=== PATIENT | female | born 1945 | race Caucasian/White ===

== ENCOUNTER → 2017-01-04 | Outpatient (REF) | payer MEDICARE ==
[2017-01-04 12:14] LABS: ALBUMIN 3.8 GM/DL (3.2-5.2); ALBUMIN/GLOBULIN RATIO 1.31 (1.00-1.93); ALKALINE PHOSPHATASE 103 U/L (45-117); ALT/SGPT 41 U/L (12-78); ANION GAP 7 MEQ/L (8-16); AST/SGOT 30 U/L (15-37); BILIRUBIN,TOTAL 1.2 MG/DL (0.2-1.0); BLOOD UREA NITROGEN 19 MG/DL (7-18); CALCIUM LEVEL 8.3 MG/DL (8.8-10.2); CARBON DIOXIDE LEVEL 32 MEQ/L (21-32); CHLORIDE LEVEL 101 MEQ/L (98-107); CHOLESTEROL LEVEL 242 MG/DL (<200); CREATININE FOR GFR 0.74 MG/DL (0.55-1.02); GLOMERULAR FILTRATION RATE > 60.0 (>39); GLUCOSE, FASTING 127 MG/DL (83-110); POTASSIUM SERUM 4.1 MEQ/L (3.5-5.1); SODIUM LEVEL 140 MEQ/L (136-145); TOTAL PROTEIN 6.7 GM/DL (6.4-8.2); TRIGLYCERIDES LEVEL 191 MG/DL (<150)
== END ==
LOC: M SFHCCLAY 08:20
PROVIDERS: ATTEND Nurse Practitioner
DX: E11.9 Type 2 diabetes mellitus without complications (principal)

== ENCOUNTER → 2017-01-06 | Outpatient (REF) | payer MEDICARE | LOC: M SFHCCLAY 13:23 | PROVIDERS: ATTEND Nurse Practitioner | DX: E11.9 Type 2 diabetes mellitus without complications (principal); Z79.84 Long term (current) use of oral hypoglycemic drugs; E78.5 Hyperlipidemia, unspecified; I10 Essential (primary) hypertension | CPT/HCPCS: 82043; G0463 ==

== ENCOUNTER → 2017-07-08 | Outpatient (REF) | payer MEDICARE ==
[2017-07-08 17:02] LABS: ALBUMIN/GLOBULIN RATIO 1.18 (1.00-1.93); ALKALINE PHOSPHATASE 125 U/L (45-117); ALT/SGPT 36 U/L (12-78); ANION GAP 8 MEQ/L (8-16); AST/SGOT 30 U/L (7-37); BILIRUBIN,TOTAL 1.2 MG/DL (0.2-1.0); BLOOD UREA NITROGEN 15 MG/DL (7-18); CALCIUM LEVEL 8.8 MG/DL (8.8-10.2); CARBON DIOXIDE LEVEL 34 MEQ/L (21-32); CHLORIDE LEVEL 98 MEQ/L (98-107); CHOLESTEROL LEVEL 233 MG/DL (<200); CREATININE FOR GFR 0.71 MG/DL (0.55-1.02); GLOMERULAR FILTRATION RATE > 60.0 (>39); GLUCOSE, FASTING 103 MG/DL (83-110); POTASSIUM SERUM 3.6 MEQ/L (3.5-5.1); SODIUM LEVEL 140 MEQ/L (136-145); TOTAL PROTEIN 7.4 GM/DL (6.4-8.2); TRIGLYCERIDES LEVEL 269 MG/DL (<150)
== END ==
LOC: M SFHCCLAY 13:29
PROVIDERS: ATTEND Family Medicine
DX: E11.9 Type 2 diabetes mellitus without complications (principal); E78.5 Hyperlipidemia, unspecified
CPT/HCPCS: 80053; 80061; 83036; G0463

== ENCOUNTER → 2018-01-13 | Outpatient (REF) | payer MEDICARE ==
[2018-01-13 16:56] LABS: ESTIMATED AVERAGE GLUCOSE 157 MG/DL (60-110); HEMOGLOBIN A1c 7.1 %
[2018-01-13 17:17] LABS: ALBUMIN 4.2 GM/DL (3.2-5.2); ALKALINE PHOSPHATASE 121 U/L (45-117); ALT/SGPT 33 U/L (12-78); ANION GAP 9 MEQ/L (8-16); AST/SGOT 30 U/L (7-37); BILIRUBIN,TOTAL 1.2 MG/DL (0.2-1.0); BLOOD UREA NITROGEN 14 MG/DL (7-18); CALCIUM LEVEL 8.7 MG/DL (8.8-10.2); CARBON DIOXIDE LEVEL 33 MEQ/L (21-32); CHLORIDE LEVEL 98 MEQ/L (98-107); CHOLESTEROL LEVEL 246 MG/DL (<200); GLOMERULAR FILTRATION RATE > 60.0 (>39); GLUCOSE, FASTING 137 MG/DL (70-100); HDL CHOLESTEROL 40 MG/DL (>40); LDL CHOLESTEROL 155.6 MG/DL (<100); NON-HDL-C 206 MG/DL; POTASSIUM SERUM 3.8 MEQ/L (3.5-5.1); SODIUM LEVEL 140 MEQ/L (136-145); TOTAL PROTEIN 7.2 GM/DL (6.4-8.2); TRIGLYCERIDES LEVEL 252 MG/DL (<150)
== END ==
LOC: M SFHCCLAY 13:24
DX: E11.9 Type 2 diabetes mellitus without complications (principal); E78.5 Hyperlipidemia, unspecified
CPT/HCPCS: 80053

== ENCOUNTER → 2019-01-23 | Outpatient (REF) | payer MEDICARE ==
[2019-01-23 12:46] LABS: ALBUMIN 3.6 GM/DL (3.2-5.2); ALT/SGPT 20 U/L (12-78); BILIRUBIN,TOTAL 1.6 MG/DL (0.2-1.0); BLOOD UREA NITROGEN 15 MG/DL (7-18); CALCIUM LEVEL 9.2 MG/DL (8.8-10.2); CARBON DIOXIDE LEVEL 33 MEQ/L (21-32); CHLORIDE LEVEL 98 MEQ/L (98-107); CHOLESTEROL LEVEL 208 MG/DL (<200); CHOLESTEROL RISK RATIO 4.952 (<5); CREATININE FOR GFR 0.79 MG/DL (0.55-1.30); GLOMERULAR FILTRATION RATE > 60.0 (>39); GLUCOSE, FASTING 135 MG/DL (70-100); HDL CHOLESTEROL 42 MG/DL (>40); LDL CHOLESTEROL 127 MG/DL (<100); NON-HDL-C 166 MG/DL; POTASSIUM SERUM 3.8 MEQ/L (3.5-5.1); SODIUM LEVEL 140 MEQ/L (136-145); TOTAL PROTEIN 7.1 GM/DL (6.4-8.2); TRIGLYCERIDES LEVEL 194 MG/DL (<150)
[2019-01-23 13:02] LABS: HEMOGLOBIN A1c 6.8 %
== END ==
LOC: M SFHCCLAY 08:45
PROVIDERS: ATTEND Family Medicine
DX: E78.5 Hyperlipidemia, unspecified (principal); E11.9 Type 2 diabetes mellitus without complications

== ENCOUNTER → 2019-02-20 | Outpatient (REF) | payer MEDICARE ==
[2019-02-20 17:14] LABS: BASO # 0.1 10^3/uL (0.0-0.2); BASO % 0.5 % (0.0-1.0); EOS # 0.3 10^3/uL (0.0-0.50); EOS % 1.9 % (0.0-3.0); HEMATOCRIT 42.9 % (36.0-47.0); LYMPH # 1.7 10^3/uL (1.5-4.5); LYMPH % 11.9 % (24.0-44.0); MEAN CORPUSCULAR HEMOGLOBIN 27.3 pg (27.0-33.0); MEAN CORPUSCULAR HGB CONC 32.6 g/dl (32.0-36.5); MEAN CORPUSCULAR VOLUME 83.8 fl (80.0-96.0); MONO # 1.1 10^3/uL (0.0-0.8); MONO % 7.6 % (0.0-5.0); NEUTROPHILS # 10.8 10^3/uL (1.8-7.7); NEUTROPHILS % 77.6 % (36.0-66.0); PLATELET COUNT, AUTOMATED 360 10^3/uL (150-450); RED BLOOD COUNT 5.12 10^6/uL (4.00-5.40)
== END ==
LOC: M SFHCCLAY 13:55
PROVIDERS: ATTEND Family Medicine
DX: J40 Bronchitis, not specified as acute or chronic (principal); R63.4 Abnormal weight loss; R55 Syncope and collapse; Z85.42 Personal history of malignant neoplasm of other parts of uterus

== ENCOUNTER → 2019-02-22 | Outpatient (CLI) | payer MEDICARE ==
--- NOTE | 2019-02-22 11:42 | REP ---
PA and lateral chest: Comparison is 11/01/2013. There is a 7.0 cm left upper lobe mass as a distinct interval change. The right lung is clear. Cardiac size is normal. The rudy, mediastinum, skeletal structures are unremarkable. Impression: New 7.0 cm left upper lobe mass. Recommend CT for further evaluation. Electronically Signed by Valentín Chaves MD 02/22/2019 11:34 A
== END ==
LOC: M CLY 10:08
PROVIDERS: ATTEND Family Medicine
DX: R91.8 Other nonspecific abnormal finding of lung field (principal)

== ENCOUNTER → 2019-03-02 | Outpatient (CLI) | payer MEDICARE ==
[~2019-03-02] MED LIST: BISO5TAB5 PO; LISI20TA3 PO; LOVA10TA PO
--- NOTE | 2019-03-02 09:24 | REP ---
Clinical: Lung mass. Technique: Axial noncontrast images from the thoracic inlet to the upper abdomen with coronal and sagittal re-formations. Findings: Large left upper lobe lung mass extends from the left suprahilar region into the left upper lobe and measures roughly 8.1 x 7.3 x 6.0 cm maximal diameter reaching the subpleural surface along the lateral chest wall. Multiple smaller satellite lesions are also appreciated ranging in size but measuring up to roughly 3 cm. 1 cm lesion identified within the anterior left lower lobe (image 40) and left base (image 67). Associated left hilar and mediastinal adenopathy is suspected but difficult to evaluate due to the lack of intravenous contrast. No pleural effusion. No pneumothorax. No cardiomegaly noted or pericardial effusion identified. Thoracic aorta is without aneurysm. A solitary pathologic lymph node measuring approximately 17 mm is suggested in the subcutaneous tissues along the right lateral hemithorax (image 62). Upper abdomen demonstrates normal bilateral adrenal glands. Hepatic and splenic calcifications consistent with prior granulomas disease. Osseous structures demonstrate degenerative changes without obvious acute aggressive lesion. Impression: 1. Large pulmonary mass in the left upper lobe extending from the mediastinum/hilum to the subpleural lateral chest wall measuring approximately 8.1 x 7.3 x 6.0 cm maximal diameter. Associated conglomerate mediastinal and left hilar adenopathy suspected. Satellite lesions and smaller with metastatic foci noted. Further evaluation is limited due to the lack of intravenous contrast enhancement. Electronically Signed by Parvez Barnett MD 03/02/2019 09:15 A
== END ==
LOC: M RAD 08:49
PROVIDERS: ATTEND Nurse Practitioner Family
DX: R91.8 Other nonspecific abnormal finding of lung field (principal)

== ENCOUNTER 2019-03-16 08:45 | Day surgery (SDC) | payer MEDICARE ==
[~2019-03-16] VITALS: Ht 152.4 cm; Wt 91.2 kg
[~2019-03-16 08:45] MED LIST changes: +LIDOCAINE 1% MDV 20ML VIAL SQ PRN; +LIDOCAINE 2% INJ 100 MG/5 ML SDV (FOR ANES.) As Ordered ONE; +LISI20TA20 PO; -LISI20TA3 PO; +LR 1,000 ML IV ONE; +MIDAZOLAM INJ 2 MG/2 ML VIAL (J2250) As Ordered ONE; +ONDANSETRON 4MG/2ML VIAL (J2405) As Ordered ONE; +PROPOFOL 200 MG/20 ML VIAL As Ordered ONE; +ROCURONIUM BROMIDE 50 MG/5 ML VIAL As Ordered ONE; +dexameTHASONE 4 MG/ML 1ML VIAL (J1100) As Ordered ONE; +fentaNYL 250 MCG/5 ML INJECTION (J3010) As Ordered ONE
[2019-03-16] MEDS ORDERED: THROMBIN SOLN 5,000 UNITS VIAL As Ordered ONE (09:27)
[2019-03-16] MEDS ORDERED: CETACAINE SPRAY 5GM As Ordered ONE (09:27)
[2019-03-16] MEDS ORDERED: LIDOCAINE VISCOUS 2% SOLN 15ML UDC As Ordered ONE (09:28)
[2019-03-16] MEDS ORDERED: EPINEPHrine INJ 1 MG/ML 1ML AMP As Ordered ONE (09:28)
[2019-03-16] MEDS ORDERED: LIDOCAINE 1% SDV INJ 30 ML VIAL As Ordered ONE (09:28)
[2019-03-16] MEDS ORDERED: EPINEPHrine 1MG/ML INJ 30ML MD-VIAL As Ordered ONE (11:20)
[2019-03-16] MEDS ORDERED: ePHEDrine SULFATE 25 MG/5 ML(5MG/ML) SYRINGE As Ordered ONE (11:28)
[2019-03-16] MEDS ORDERED: SUGAMMADEX SODIUM 500 MG/5 ML VIAL (BRIDION) As Ordered ONE (11:28)
[2019-03-16] MEDS ORDERED: ACETAMINOPHEN 1000MG 100ML IV BTL (OFIRMEV) (J0131 PER 10MG) As Ordered ONE (11:37)
[2019-03-16] MEDS ORDERED: ALBUTEROL 6.7GM INHALER **FOR ANES. CART/OMNICELL ONLY As Ordered ONE (11:52)
[2019-03-16] MEDS ORDERED: NALOXONE INJ 0.4 MG/1 ML VIAL (J2310) As Ordered ONE (11:56)
--- NOTE | 2019-03-16 12:19 | RO ---
DATE OF PROCEDURE: 03/15/2019 PREOPERATIVE DIAGNOSIS: Abnormal chest CT, left upper lobe mass. POSTOPERATIVE DIAGNOSIS: Abnormal chest CT, left upper lobe mass. FINDINGS: Obstructive left upper lobe with tumor and under endobronchial ultrasound large subcarinal node. PROCEDURE: Bronchoscopy with endobronchial ultrasound with fine-needle aspiration procedures. SURGEON: Dr. Ortiz OIL BOILER: None. SPECIMENS OBTAINED: 1. Endobronchial cytology brush left upper lobe. 2. Endobronchial forceps biopsies left upper lobe. 3. FNA subcarinal node under EBUS. ANESTHESIA: General. ESTIMATED BLOOD LOSS: 10 mL. MEDICATION ADMINISTERED DURING BRONCHOSCOPY: Topical to the airway with 1 mL of 1:10,000 epinephrine. DESCRIPTION OF PROCEDURE: After informed consent was reviewed with the patient in the preoperative area, she was brought back to OR number three. General anesthesia was initiated. The patient was intubated with an 8.5 endotracheal tube. The 1T-90 bronchoscope was then introduced with Cetacaine spray for anesthetization. Upon entering the airway, the trachea was midline. The yajaira was sharp. Right and left mainstem bronchi were normal. The RB 1 through 10 was viewed without endobronchial lesion. There was some pitting and banding. In the superior basal segment of the right lower lobe, there was minimal amounts of mucus that had to be cleared with saline. However, after clearance, there was no endobronchial lesion. After inspection of the right airway, the bronchoscope was inserted into the left airway. There was a clear abnormality encroaching on the distal left mainstem. The entire left upper lobe including lingular segment was obstructed with mass-like tissue with hypervascularity. Along the lateral wall of the left mainstem, there was also an abnormal lesion. The left lower lobe, however, was patent without endobronchial lesion. The spur between the left upper and lower lobes was splayed. Cytology brush was then taken of the abnormality on the wall of the distal left mainstem. This was given to cytology and then samples were taken of that area along with the endobronchial lesion in the left upper lobe. There was quite a bit of bleeding. Therefore, epinephrine was used, 1 mL of 1:10,000. After adequate hemostasis, all airways were suctioned and the 1T-190 bronchoscope was removed. Endobronchial ultrasound was inserted. I viewed the subcarinal region from the left side showing an enlarged subcarinal node. Fine needle aspirations were obtained of this lesion. After adequate sampling, the endobronchial ultrasound was removed. The 1T-190 bronchoscope was reinserted. All airways were suctioned and hemostasis was assured. The patient is in recovery and postprocedure chest x-ray is pending.
[2019-03-16] MEDS ORDERED: fentaNYL 100 MCG/2 ML INJECTION (J3010) IV PRN (13:00)
[2019-03-16] MEDS ORDERED: ONDANSETRON 4MG/2ML VIAL (J2405) IV PRN (13:00)
[2019-03-16] MEDS ORDERED: LR 1,000 ML IV SCH (13:00)
[2019-03-16] MEDS ORDERED: PERCOCET 5MG/325MG TAB PO PRN (13:00)
[2019-03-16 13:35] VITALS: BP 150/67
--- NOTE | 2019-03-16 13:48 | REP ---
REASON: Assess for pneumothorax. COMPARISON: 02/22/2019. The technique utilized in obtaining the radiograph has magnified the cardiac silhouette and accentuated the interstitial markings. The left upper lobe opacity is unchanged. There is no evidence of a pneumothorax. Other than technique there is no significant change from the prior exam. IMPRESSION: Persistent left upper lobe opacity. No evidence of a pneumothorax. Electronically Signed by Ramirez Henderson DO 03/16/2019 03:44 P
--- NOTE | 2019-03-18 15:52 | ECGEPIP ---
[facility] Test Date: 2019-03-16 Pat Name: SHANTHI VÁZQUEZ Department: Room: - Gender: Female Plans Examiner: SHARON : 1945 Requested By: TORREY Edmonds Order Number: [id number] Reading MD: John Andrews Measurements Intervals [place] Rate: 84 P: 65 NC: 139 QRS: 44 QRSD: 89 T: 35 QT: 390 QTc: 463 Interpretive Statements SINUS RHYTHM NO PRIOR TRACING IN THE SYSTEM Electronically Signed on 03-18-2019 15:51:37 EDT by John Andrews
== END 2019-03-16 13:50 | disposition home or self-care (01) ==
LOC: M SDC 08:45
PROVIDERS: ATTEND Internal Medicine Pulmonary Disease
DX: C34.12 Malignant neoplasm of upper lobe, left bronchus or lung (principal); R94.2 Abnormal results of pulmonary function studies; I10 Essential (primary) hypertension; E78.00 Pure hypercholesterolemia, unspecified; Z85.41 Personal history of malignant neoplasm of cervix uteri; Z79.899 Other long term (current) drug therapy
CPT/HCPCS: 31623; 31625; 31652; 71045; 88104; 88173; 88305; 88313; 88341; 88342; 93005; J0131; J1100; J2250; J2310; J2405; J3010

== ENCOUNTER → 2019-04-12 | Outpatient (CLI) | payer MEDICARE ==
[~2019-04-12] MED LIST changes: -BISO5TAB5 PO; +BISO5TAB9 PO; +DECA4TAB PO; +LIDO2.5C15 TOP; -LIDOCAINE 1% MDV 20ML VIAL SQ PRN; -LIDOCAINE 2% INJ 100 MG/5 ML SDV (FOR ANES.) As Ordered ONE; -LR 1,000 ML IV ONE; -MIDAZOLAM INJ 2 MG/2 ML VIAL (J2250) As Ordered ONE; +ONDA4TAB5 PO; -ONDANSETRON 4MG/2ML VIAL (J2405) As Ordered ONE; -PROPOFOL 200 MG/20 ML VIAL As Ordered ONE; -ROCURONIUM BROMIDE 50 MG/5 ML VIAL As Ordered ONE; +VITA250T18 PO; -dexameTHASONE 4 MG/ML 1ML VIAL (J1100) As Ordered ONE; -fentaNYL 250 MCG/5 ML INJECTION (J3010) As Ordered ONE
--- NOTE | 2019-04-12 14:39 | REP ---
PET/CT: HISTORY: Diagnosing malignant lesion left upper lobe of the lung. Biopsy shows a poorly differentiated non-small cell carcinoma. COMPARISONS: Comparison chest CT March 02, 2019. TECHNIQUE: 56 minutes following the intravenous injection of a 9.31 mCi dose of F-18 FDG, three-dimensional PET scintigraphy is acquired from the skull base to the proximal thighs. Triplanar noncontrast CT scanning is acquired through the same anatomic range for attenuation correction, and image registration with scan parameters optimized to minimize radiation exposure to the patient. PET scintigraphy and CT datasets were fused and displayed on a workstation with multiplanar and projection display capability. PET/CT FINDINGS: Head and neck soft tissues are unremarkable. There is a large hypermetabolic mass in the left upper lobe extending into the left hilus and mediastinum as seen on CT. Maximum standard uptake value within this large lobulated mass lesion is up to 24.0. There is a curvilinear extension of the mass lesion posterolaterally in the left upper lobe which is hypermetabolic as well, 12.53. Left superior mediastinal adenopathy is seen extending up to and adjacent to the great vessels, maximum standard uptake value 15.37. No other abnormal hypermetabolic uptake is seen within the chest. No abnormal adrenal uptake is seen. There are unfortunately skeletal metastatic sites with a hypermetabolic focus of bone destruction in the humeral head on the right side at the glenohumeral articulation. Maximum standard uptake value here is 17.37. The second skeletal metastatic site is in the medullary canal in the proximal diaphysis of the left femur where there is endosteal cortical thinning. Maximum standard uptake value is 14.89. This bony lesion is elongate measuring 9.2 cm in craniocaudal span in the endosteal canal of the proximal femur. There is a tiny focus of hypermetabolic uptake in the left pubic bone consistent with a metastasis. Maximum standard uptake value 4.73. A small hypermetabolic skeletal metastasis is seen in the right superior iliac bone with maximum standard uptake value 4.82. No other definite skeletal metastatic sites. There is a hypermetabolic somewhat spiculated 1.6 cm nodule in the subcutaneous fat of the right lateral chest wall versus inferior breast. Maximum standard uptake value is 13.91. This is consistent with a soft tissue metastasis. IMPRESSION: Bulky left upper lobe, left hilar, and left mediastinal hypermetabolic adenopathy. There are multiple skeletal metastases and a subcutaneous soft tissue metastasis is noted as above. Please note the skeletal sites include a fairly large endosteal lesion in the subtrochanteric femur on the left side which raises a risk for pathologic fracture. Electronically Signed by Helder Lin MD 04/12/2019 03:28 P
== END ==
LOC: M PLARAD 08:37
PROVIDERS: ATTEND Internal Medicine Pulmonary Disease
DX: R91.8 Other nonspecific abnormal finding of lung field (principal)
CPT/HCPCS: 78815; A9552

== ENCOUNTER → 2019-04-17 | Outpatient (CLI) | payer MEDICARE ==
[~2019-04-17] MED LIST changes: +BISO5TAB14 PO; -BISO5TAB9 PO; +LIDOCAINE 1% MDV 20ML VIAL As Ordered ONE; +MIDAZOLAM INJ 2 MG/2 ML VIAL (J2250) As Ordered ONE; +ONDA-83 PO; -ONDA4TAB5 PO; +ceFAZolin 1GM INJ (J0690 PER 500MG) As Ordered ONE; +diphenhydrAMINE INJ 50MG/ML VIAL (J1200) As Ordered ONE; +fentaNYL 100 MCG/2 ML INJECTION (J3010) As Ordered ONE
--- NOTE | 2019-04-17 13:21 | IRHP ---
[facility] IR Pre-Procedure H & P General Date of Service: Apr 17, 2019 Procedure: Same Day Surgery Interval History and Physical I have seen the patient and reviewed last H & P performed within 30 days. There is no significant interval change. History of Present Illness Chief Complaint The patient is a 74-year-old female admitted with a reason for visit of NSCLC. PRE-PROCEDURE DIAGNOSIS: lung ca HEART: normal rate. LUNGS: normal breathing at rest. ASA Classification ASA Classification: II-Mild systemic disease Mallampati Score: II NPO: Yes Problems with prior sedation: No Obstructive Sleep Apnea: No Plan moderate sedation Allergies Coded Allergies: No Known Allergies (Unverified , 03/10/19) Home Medications Scheduled Ascorbic Acid (Vitamin C), 250 MG PO DAILY, (Reported) Bisoprolol Fumarate (Bisoprolol Fumarate), 2.5 MG PO DAILY, (Reported) Dexamethasone (Decadron), 2 TAB PO BID Lidocaine/Prilocaine (Lidocaine-Prilocaine Cream), 1 APLCT TOP ASDIRECTED Lisinopril/Hydrochlorothiazide (Lisinopril-Hctz 20-25 mg Tab), 1 TAB PO DAILY, (Reported) Lovastatin (Lovastatin), 10 MG PO DAILY, (Reported) Scheduled PRN Ondansetron HCl (Ondansetron HCl), 4 MG PO Q4HP PRN for nausea/vomiting VS, I&O, 24H, Fishbone Vital Signs/I&O Vital Signs Date Time Temp Pulse Resp B/P (MAP) Pulse Ox O2 Delivery O2 Flow Rate FiO2 04/17/19 13:04 96.7 80 20 96 RUTH CHOWDHURY MD Apr 17, 2019 13:21
--- NOTE | 2019-04-17 14:38 | POST-OPPD ---
Postoperative Procedure Note Date Of Procedure: Apr 17, 2019 Time Of Procedure: 14:37 PREOPERATIVE DIAGNOSIS: lung ca POSTOPERATIVE DIAGNOSIS:lung ca FINDINGS: patent right IJ PROCEDURE: right side port SURGEON: peter ANESTHESIA: moderate sedation ESTIMATED BLOOD LOSS: < 5 ml COMPLICATIONS: none POSTOPERATIVE CONDITION: stable RUTH CHOWDHURY MD Apr 17, 2019 14:38
[2019-04-17 15:31] VITALS: BP 115/66
--- NOTE | 2019-04-17 16:21 | REP ---
IR Ultrasound and fluoroscopy-guided port placement. IR Ultrasound of the neck. IR Moderate sedation. Clinical information: Lung cancer. Physician: Dr. Moore. Procedure: The patient was advised of the benefits, risks, and alternatives of the procedure and informed consent was obtained. A time-out was performed with verification of the patient's name, MRN, site of procedure and type of procedure to be performed. The patient was positioned in the supine position on the angiographic table. The site was prepped and draped in the usual sterile fashion. Moderate sedation was performed by the physician including the presence of an independent trained observer who assisted and monitored the patient's level of consciousness and physiologic status. Following the administration of Fentanyl and Versed, the physician spent 45 minutes of continuous face to face time with the patient. Ultrasound of the neck reveals a patent and compressible right internal jugular vein. A crusher supervisor radiograph reveals left lung consolidation. The neck and anterior chest wall were anesthetized with lidocaine. The right internal jugular vein was accessed using a microintroducer needle by a lateral approach. An 018 wire was advanced into the superior vena cava, the needle was removed and a microsheath was placed. An Amplatz wire was then passed into the inferior vena cava. An incision at the internal jugular vein access site and anterior chest wall were made using a scalpel. An incision was made at the anterior chest wall. A small pocket was created using a combination of blunt and sharp dissection. A tunneling device was then used to pass the catheter from the pocket to the neck puncture site. An 8-Dominican AngiodynamUbitexx smart power port was then positioned in the pocket. The catheter was then measured and cut. The introducer sheath was exchanged for a peel-away sheath. The catheter was passed through the peel-away sheath into the internal jugular vein and the peel-away sheath was removed. The port tip was positioned at the right atrium. The port was then accessed with a Arshad needle. The port flushes and aspirates well. The puncture site in the neck was closed. The chest wall incision was then closed with 2-0 Vicryl and 4-0 Monocryl. Glue and Steri-Strips were applied. A sterile dressing was then applied. The patient tolerated the procedure well and was returned to the PRU in stable condition. Estimated blood loss: <5 ml. Complications: none. Conclusion: 1. Successful placement of an 8-Dominican Angiodynamics smart power port via the right internal jugular vein. The port is ready for immediate use. 2. Patient to follow up in IR clinic in 2 weeks. Thank you for this referral. Electronically Signed by Danyelle Moore MD 04/17/2019 04:19 P
== END ==
LOC: M IRPRO 12:42
PROVIDERS: ATTEND Radiology Diagnostic Radiology
DX: C34.90 Malignant neoplasm of unspecified part of unspecified bronchus or lung (principal); Z79.899 Other long term (current) drug therapy
CPT/HCPCS: 36561; 76937; 99152; 99153; C1769; C1788; C1894; J0690; J1200; J2250; J3010

== ENCOUNTER → 2019-04-25 | Outpatient (CLI) | payer MEDICARE ==
[~2019-04-25] MED LIST changes: -BISO5TAB14 PO; +BISO5TAB9 PO; -LIDOCAINE 1% MDV 20ML VIAL As Ordered ONE; -MIDAZOLAM INJ 2 MG/2 ML VIAL (J2250) As Ordered ONE; -ONDA-83 PO; +ONDA4TAB5 PO; -ceFAZolin 1GM INJ (J0690 PER 500MG) As Ordered ONE; -diphenhydrAMINE INJ 50MG/ML VIAL (J1200) As Ordered ONE; -fentaNYL 100 MCG/2 ML INJECTION (J3010) As Ordered ONE
--- NOTE | 2019-04-26 08:59 | RADONC ---
RADIATION ONCOLOGY CONSULTATION NOTE DATE: 04/25/2019 CHART NUMBER: [id number] DIAGNOSIS: Left upper lobe lung cancer. STAGE: IV, metastatic. ECOG PERFORMANCE STATUS: 0 CONSULTATION NOTE: Ms. Wood is a very pleasant, 74-year-old white female with the diagnosis of widely metastatic poorly differentiated non-small cell carcinoma involving her left upper lobe as well as mediastinum and bone metastasis who is presenting to us today for consideration of palliative radiation therapy to her left femur. HISTORY OF PRESENT ILLNESS: The patient was in her usual state of health with a long smoking history. She also had increasing shortness of breath. A CT scan of the chest was undertaken on 03/02/2019 and revealed a large left upper lobe pulmonary mass extending from the mediastinum and hilar area to the subpleural lateral chest wall measuring approximately 8.1 cm x 7.3 cm x 6 cm. Associated conglomerate mediastinal and left hilar adenopathy was suspected. There were noted to be satellite lesions and small metastatic foci. On 03/21/2019, the patient underwent transbronchial biopsy and pathology revealed a poorly differentiated non-small cell carcinoma. A PET scan was done on 04/12/2019 and showed hypermetabolic bulky uptake in the left upper lobe as well as left hilar and left mediastinal regions. There were multiple skeletal metastatic sites and a subcutaneous soft tissue mass was also noted. Of note, there was a large endosteal lesion in the sub trochanter femur on the left side, which raises the possibility of a risk for pathologic fracture. She was seen by medical oncology on 04/06/2019 to discuss systemic options and is now being referred to me for consideration of palliative radiation therapy to her left femur due to it being a weightbearing bone. ALLERGIES: The patient has NO KNOWN DRUG ALLERGIES. PAST MEDICAL HISTORY: The patient's past medical history is positive for hypertension, hypercholesterolemia, cervical cancer, status post hysterectomy and resection of a benign right breast nodule. SOCIAL HISTORY: The patient has a long smoking history having smoked her entire life. She drinks alcohol socially. REVIEW OF SYSTEMS: The patient's review of systems is noncontributory other than for some shortness of breath. She is not having any pain at this time. Denies nausea, vomiting, fevers, chills, night sweats, diplopia, headaches, anxiety or depression, anorexia, weight loss, visual disturbances, chest pain, urinary or bowel difficulties, bone pain, or neurological problems. PHYSICAL EXAMINATION: The patient is a well-developed, well-nourished, 74-year-old white female, in no acute distress. HEENT exam is normocephalic, atraumatic. Extraocular movements are intact. There is no palpable cervical, supraclavicular, infraclavicular, axillary, or inguinal lymphadenopathy present. Lungs are clear to auscultation and percussion. Heart has a regular rate and rhythm. Abdomen is benign with no hepatosplenomegaly, masses, or tenderness. Skeletal examination reveals no tenderness to pressure or percussion of the bony skeleton. Extremities reveal no clubbing, cyanosis, or edema. Neurologic exam is grossly intact, as is the remainder of the physical examination. ASSESSMENT: I had a lengthy discussion with this patient and her family. I am quite concerned at this time with the lesion in her left femur. I have personally reviewed the PET scan with our radiologist Dr. Lin, who does agree that this is a weightbearing bone that if untreated could potentially lead to a pathologic fracture. Of course, systemic therapy will also be treating this bone. However, in light of the fact that the patient is somewhat overweight, I think it reasonable to offer her radiation at this time to avoid pain and pathological fracture. The patient is scheduled to be seen at the [facility] in [place] on Wednesday for a second opinion and most likely treatment with systemic therapy. The patient's family are quite supportive and wish for her to be seen down there. Apparently other family members were treated at that center with good results. The patient and family are more than happy to undergo there radiation here in our center and I think that is reasonable considering the great distance to [place]. I have discussed in detail the potential benefits as well as possible acute and chronic sequelae of external beam radiation therapy. We discussed logistics of treatment planning, simulation subsequent fractionated daily radiation treatments. I did discuss the patient's risk for pathologic fracture in detail. I asked her to avoid weightbearing on that left leg. I have given her instructions for walking and going upstairs. I let her know to be diligent. We are attempting to undertake simulation and treatment planning tomorrow and begin radiation on this week. This way if she were to get her systemic therapy in [place] we can be completed by the time she starts treatment. I did discuss radiation to other sites. However, systemic therapy will also be treating the humerus and other sites. Since there is much less of a risk of pathologic fracture and these are note weightbearing bones, I believe it reasonable to withhold radiation to these sites at this time. Should they progress or become painful, we can always initiate radiation at that time. Thank you for allowing us to participate in the care of this very pleasant woman. If I could be of any further assistance or provide you with any information, please free to contact me anytime. As always, warm regards. cc: DO Bruna Champion MD Rory Sears, DO [facility]
== END ==
LOC: M ONCR 09:52
PROVIDERS: ATTEND Radiology Radiation Oncology
DX: C34.90 Malignant neoplasm of unspecified part of unspecified bronchus or lung (principal)

== ENCOUNTER 2019-04-27 13:38 | Outpatient (RCR) | payer MEDICARE ==
--- NOTE | 2019-04-28 10:03 | RADONC ---
RADIATION ONCOLOGY SIMULATION NOTE DATE: 04/27/2019 CHART NUMBER: [id number] SIMULATION NOTE: Ms. Wood was taken to the CT scan for CT simulation of her left femur field. CT was accomplished without difficulty or discomfort. Radiation treatment planning is underway and radiation treatments will begin subsequently. An immobilization device was made and will be used throughout the course of treatment. It was made without difficulty or discomfort. I was physically present throughout the course of CT simulation.
== END 2019-05-01 ==
LOC: M ONCR 13:38
PROVIDERS: ATTEND Radiology Radiation Oncology
DX: C79.51 Secondary malignant neoplasm of bone (principal)

== ENCOUNTER → 2019-05-08 | Outpatient (CLI) | payer MEDICARE ==
[~2019-05-08] MED LIST changes: +ISOVUE-370 76% 100ML VIAL (Q9967) As Ordered ONE
--- NOTE | 2019-05-08 13:27 | REP ---
CT brain without and with IV contrast: History: Malignant neoplasm of the lung, rule out metastasis. No comparison brain imaging is seen. Comparison PET/CT study April 12, 2019. CT contrast dose: 75 mL of intravenous Isovue 370. CT findings: Digital preliminary room service waiter radiograph is unremarkable. Bone window settings demonstrate a dystrophic calcification in the right frontal scalp. No bony destructive lesion is seen in the calvarium. The visualized paranasal sinuses are clear. On soft tissue window settings, there is a rounded low density mass lesion in the periventricular white matter of the left frontal lobe. This measures 2.3 cm in greatest diameter. There is some adjacent vasogenic edema. No other intracranial mass lesion is seen. No hemorrhage is seen. On contrast enhanced images, there is some peripheral contrast enhancement seen in the left frontal lobe lesion. No other abnormal intracranial enhancement is appreciated. Impression: Solitary 2.3 cm peripherally enhancing mass in the periventricular white matter of the left frontal lobe with some surrounding vasogenic edema compatible with an intracranial metastasis. Electronically Signed by Helder Lin MD 05/08/2019 03:16 P
== END ==
LOC: M RAD 09:14
DX: C34.90 Malignant neoplasm of unspecified part of unspecified bronchus or lung (principal)
CPT/HCPCS: 70470; Q9967

== ENCOUNTER → 2019-05-09 | Outpatient (POV) | payer MEDICARE ==
[~2019-05-09] VITALS: Ht 152.4 cm; Wt 88.6 kg
[~2019-05-09] MED LIST changes: -ISOVUE-370 76% 100ML VIAL (Q9967) As Ordered ONE
[2019-05-09 10:50] VITALS: BP 120/64
--- NOTE | 2019-05-09 15:49 | IRPN ---
[facility] IR Progress Note IR Progress Note DATE: May 09, 2019 FOLLOW-UP: 2 weeks status post port placement. Patient doing well. No fevers or chills. No pain or discharge from site.. ON EXAMINATION: Port site looks good. No discharge. No redness, tenderness or fluctuance. IMPRESSION: Doing well status post port placement. No further follow-up required unless initiated by patient or referring physician. Thank you for this referral. Allergies Coded Allergies: No Known Allergies (Unverified , 03/10/19) VS,Fishbone, I+O VS, Fishbone, I+O Vital Signs Date Time Temp Pulse Resp B/P (MAP) Pulse Ox O2 Delivery O2 Flow Rate FiO2 05/09/19 10:50 97.9 79 18 120/64 (82) 95 RUTH CHOWDHURY MD May 09, 2019 15:49
== END ==
LOC: M IRPOV 09:30
PROVIDERS: ATTEND Radiology Diagnostic Radiology
DX: Z45.2 Encounter for adjustment and management of vascular access device (principal)

== ENCOUNTER 2019-05-16 08:27 | Outpatient (RCR) | payer MEDICARE ==
--- NOTE | 2019-05-08 10:56 | RADONC ---
RADIATION ONCOLOGY PROGRESS NOTE DATE: 05/08/2019 CHART NUMBER: [id number] PROGRESS NOTE: Ms. Wood is presently at a dose of 1500 cGy to her left femur and is tolerating treatments quite well at this point with no complaints related to her radiation therapy. She is having no bone pain or skin discomfort. REVIEW OF SYSTEMS: The patient's review of systems is noncontributory. Denies nausea, vomiting, fevers, chills, night sweats, diplopia, headaches, anxiety or depression, anorexia, weight loss, visual disturbances, chest pain, urinary or bowel difficulties, bone pain, or neurological problems. PHYSICAL EXAMINATION: The patient's skin is in good condition with no evidence of radiation change present. There is no moist or dry desquamation. The remainder of her physical exam remains unchanged. ASSESSMENT: The patient is tolerating treatments quite well and radiation will continue as scheduled. I did receive a call from [place] to discuss this case. In light of the fact that we are not involving her critical organs, I think it is safe to initiate chemotherapy while radiation is being delivered. Indeed the overlap would only be a day or so.
--- NOTE | 2019-05-15 10:01 | RADONC ---
RADIATION ONCOLOGY PROGRESS NOTE DATE: 05/15/2019 CHART NUMBER: [id number] PROGRESS NOTE: Ms. Wood is presently at a dose of 2700 cGy to her left femur and is tolerating treatments quite well at this point with no complaints related to her radiation therapy. She has no leg pain or other problems. REVIEW OF SYSTEMS: The patient's review of systems is noncontributory. Denies nausea, vomiting, fevers, chills, night sweats, diplopia, headaches, anxiety or depression, anorexia, weight loss, visual disturbances, chest pain, urinary or bowel difficulties, bone pain, or neurological problems. PHYSICAL EXAMINATION: The patient's skin is in good condition with no evidence of moist or dry desquamation. The remainder of her physical exam remains unchanged. Ms. Wood is tolerating treatments quite well and radiation is scheduled for completion tomorrow.
--- NOTE | 2019-05-17 09:34 | RADONC ---
RADIATION ONCOLOGY TREATMENT SUMMARY DATE: 05/16/2019 CHART NUMBER: [id number] DIAGNOSIS: Left upper lobe lung cancer. STAGE: IV, metastatic. ECOG PERFORMANCE STATUS: 0. TREATMENT SUMMARY: Ms. Wood is a very pleasant 74-year-old white female with the diagnosis of widely metastatic poorly differentiated non-small cell carcinoma involving her left upper lobe as well as mediastinum with bone metastasis who presented to us for consideration of palliative radiation therapy to her left femur. We treated the patient to her left femur for a total dose of 3000 cGy delivered in 10 fractions of 300 cGy each over 14 elapsed days from 05/02/2019 through 05/16/2019. The patient's left femur was treated on a linear accelerator utilizing a 15 MV photon beam via anterior and posterior parallel opposed thompson. Ms. Wood tolerated her treatments quite well and was able complete therapy as prescribed without interruption. I have scheduled the patient to see me again in 1 month for further followup. She will also continue to be followed by her other physicians as well. She is scheduled to begin her systemic therapy at the [facility] in [place]. I had once again a very lengthy discussion with this patient and her family regarding the risk for a pathologic fracture. She has been advised strongly to be careful with any weightbearing. I made it clear to her that she should not be lifting any packages, shoveling snow, bowling, or putting any weight on that bone more than necessary. She has been advised to use a walker. cc: DO Bruna Champion MD Rory Sears, DO [facility]
== END 2019-06-01 ==
LOC: M ONCR 08:27
PROVIDERS: ATTEND Radiology Radiation Oncology
DX: C79.51 Secondary malignant neoplasm of bone (principal)

== ENCOUNTER → 2019-05-22 | Outpatient (CLI) | payer MEDICARE ==
[~2019-05-22] MED LIST changes: +PROHANCE 279.3MG/ML 15ML VIAL (A9576) As Ordered ONE
--- NOTE | 2019-05-22 15:18 | REP ---
MRI brain: 05/22/2019. Indication: Lung neoplasm. Metastatic workup. Comparison: None. Technique: Multiplanar short and long TR sequences of the brain were obtained including post-gadolinium images new. 5 ml IV ProHance were administered. Findings: There is a somewhat nodular peripherally enhancing predominantly cystic mass within the left frontal lobe measuring 1.8 x 2.1 x 1.9 cm. There is relatively mild surrounding vasogenic edema. There is mild mass effect on the left frontal horn without shift of the midline structures. There is a small focal area of restricted diffusion along the anterior margin of the cystic mass. There is no hydrocephalus. The large intracranial flow voids are present. There is a subcentimeter cystic lesion within the sella which may represent an arachnoid cyst. There is no associated gadolinium enhancement. The midline structures, and craniocervical junction are otherwise unremarkable. Mild diffuse volume loss is present. Very minimal elevated areas of white matter T2 prolongation are present bilaterally most consistent with early sequelae of chronic small vessel disease. Impression: Peripherally enhancing predominately cystic left frontal lobe mass as described. Considering history, metastasis is most likely, however, additional less likely considerations include abscess and primary glial neoplasm. Electronically Signed by Mina Robles DO 05/22/2019 03:09 P
== END ==
LOC: M RAD 13:31
PROVIDERS: ATTEND Physician Assistant Medical
DX: C79.31 Secondary malignant neoplasm of brain (principal); G93.6 Cerebral edema
CPT/HCPCS: 70553; A9576

== ENCOUNTER 2019-06-09 09:55 | Outpatient (CLI) | payer MEDICARE ==
[~2019-06-09] VITALS: Ht 152.4 cm; Wt 88.6 kg
[~2019-06-09 09:55] MED LIST changes: -PROHANCE 279.3MG/ML 15ML VIAL (A9576) As Ordered ONE; +SODIUM CHLORIDE 0.9% INJ 10 ML SYR IV SCH
[2019-06-09 10:05] VITALS: BP 99/55
[2019-06-09 10:45] LABS: BASO % 0.1 % (0.0-1.0); EOS % 0.2 % (0.0-3.0); HEMOGLOBIN 14.1 g/dl (12.0-15.5); LYMPH # 0.8 10^3/uL (1.5-5.0); LYMPH % 4.4 % (24.0-44.0); MEAN CORPUSCULAR HEMOGLOBIN 28.3 pg (27.0-33.0); MEAN CORPUSCULAR HGB CONC 33.6 g/dl (32.0-36.5); MEAN CORPUSCULAR VOLUME 84.2 fl (80.0-96.0); MONO # 1.2 10^3/uL (0.0-0.8); MONO % 6.5 % (0.0-5.0); NEUTROPHILS # 16.4 10^3/uL (1.5-8.5); NEUTROPHILS % 87.9 % (36.0-66.0); PLATELET COUNT, AUTOMATED 257 10^3/uL (150-450); RED BLOOD COUNT 4.99 10^6/uL (4.00-5.40); WHITE BLOOD COUNT 18.6 10^3/uL (4.0-10.0)
[2019-06-09] MEDS ORDERED: SODIUM CHLORIDE 0.9% INJ 10 ML SYR IV PRN (10:45)
[2019-06-09 11:00] VITALS: BP 90/51
[2019-06-09 11:15] LABS: ALBUMIN 3.1 GM/DL (3.2-5.2); ALT/SGPT 28 U/L (12-78); BILIRUBIN,TOTAL 2.2 MG/DL (0.2-1.0); BLOOD UREA NITROGEN 34 MG/DL (7-18); CALCIUM LEVEL 8.1 MG/DL (8.8-10.2); CARBON DIOXIDE LEVEL 29 MEQ/L (21-32); CHLORIDE LEVEL 96 MEQ/L (98-107); CREATININE FOR GFR 0.75 MG/DL (0.55-1.30); GLOMERULAR FILTRATION RATE > 60.0 (>39); GLUCOSE, FASTING 76 MG/DL (70-100); POTASSIUM SERUM 3.8 MEQ/L (3.5-5.1); SODIUM LEVEL 134 MEQ/L (136-145); TOTAL PROTEIN 5.5 GM/DL (6.4-8.2)
[2019-06-09 11:50] LABS: CA 125 111.9 U/ML (<30.2)
== END 2019-06-09 11:00 | disposition home or self-care (01) ==
LOC: M INFU 09:55
PROVIDERS: ATTEND Internal Medicine Hematology & Oncology
DX: C55 Malignant neoplasm of uterus, part unspecified (principal)

== ENCOUNTER → 2019-06-30 | Outpatient (CLI) | payer MEDICARE ==
[~2019-06-30] MED LIST changes: -SODIUM CHLORIDE 0.9% INJ 10 ML SYR IV SCH
== END ==
LOC: M LAB 08:15
PROVIDERS: ATTEND Internal Medicine Hematology & Oncology
DX: C55 Malignant neoplasm of uterus, part unspecified (principal); Z79.899 Other long term (current) drug therapy

== ENCOUNTER → 2019-07-24 | Outpatient (CLI) | payer MEDICARE ==
[2019-07-24 09:05] LABS: BASO % 0.4 % (0.0-1.0); EOS % 0.1 % (0.0-3.0); HEMATOCRIT 29.6 % (36.0-47.0); LYMPH % 12.7 % (24.0-44.0); MEAN CORPUSCULAR HGB CONC 30.4 g/dl (32.0-36.5); MEAN CORPUSCULAR VOLUME 95.5 fl (80.0-96.0); MONO # 0.6 10^3/uL (0.0-0.8); MONO % 7.2 % (0.0-5.0); NEUTROPHILS # 6.2 10^3/uL (1.5-8.5); NEUTROPHILS % 77.8 % (36.0-66.0); PLATELET COUNT, AUTOMATED 158 10^3/uL (150-450)
[2019-07-24 09:32] LABS: ALBUMIN 2.9 GM/DL (3.2-5.2); ALT/SGPT 13 U/L (12-78); BILIRUBIN,TOTAL 1.7 MG/DL (0.2-1.0); BLOOD UREA NITROGEN 8 MG/DL (7-18); CALCIUM LEVEL 7.6 MG/DL (8.8-10.2); CARBON DIOXIDE LEVEL 31 MEQ/L (21-32); CHLORIDE LEVEL 103 MEQ/L (98-107); CREATININE FOR GFR 0.76 MG/DL (0.55-1.30); GLOMERULAR FILTRATION RATE > 60.0 (>39); GLUCOSE, FASTING 121 MG/DL (70-100); MAGNESIUM LEVEL 1.4 MG/DL (1.8-2.4); POTASSIUM SERUM 4.4 MEQ/L (3.5-5.1); SODIUM LEVEL 141 MEQ/L (136-145); TOTAL PROTEIN 5.8 GM/DL (6.4-8.2)
[2019-07-25 09:54] LABS: CA 125 47.2 U/ML (<30.2)
== END ==
LOC: M LAB 08:10
PROVIDERS: ATTEND Internal Medicine Hematology & Oncology
DX: C55 Malignant neoplasm of uterus, part unspecified (principal); Z79.899 Other long term (current) drug therapy

== ENCOUNTER → 2019-07-24 | Outpatient (CLI) | payer MEDICARE | LOC: M LAB 08:06 | PROVIDERS: ATTEND Family Medicine | DX: E11.9 Type 2 diabetes mellitus without complications (principal) ==

== ENCOUNTER → 2019-08-14 | Outpatient (CLI) | payer MEDICARE ==
[~2019-08-14] MED LIST changes: +BISO5TAB14 PO; -BISO5TAB9 PO; +ONDA-83 PO; -ONDA4TAB5 PO
[2019-08-14 09:22] LABS: BASO % 0.3 % (0.0-1.0); EOS % 0.3 % (0.0-3.0); HEMATOCRIT 27.5 % (36.0-47.0); HEMOGLOBIN 8.5 g/dl (12.0-15.5); LYMPH # 0.7 10^3/uL (1.5-5.0); LYMPH % 12.7 % (24.0-44.0); MEAN CORPUSCULAR HEMOGLOBIN 30.9 pg (27.0-33.0); MEAN CORPUSCULAR HGB CONC 30.9 g/dl (32.0-36.5); MONO # 0.5 10^3/uL (0.0-0.8); MONO % 7.8 % (0.0-5.0); NEUTROPHILS # 4.4 10^3/uL (1.5-8.5); NEUTROPHILS % 76.8 % (36.0-66.0); PLATELET COUNT, AUTOMATED 127 10^3/uL (150-450); RED BLOOD COUNT 2.75 10^6/uL (4.00-5.40); WHITE BLOOD COUNT 5.8 10^3/uL (4.0-10.0)
[2019-08-14 12:59] LABS: ALBUMIN 3.3 GM/DL (3.2-5.2); ALT/SGPT 12 U/L (12-78); BILIRUBIN,TOTAL 1.1 MG/DL (0.2-1.0); BLOOD UREA NITROGEN 11 MG/DL (7-18); CALCIUM LEVEL 6.3 MG/DL (8.8-10.2); CARBON DIOXIDE LEVEL 28 MEQ/L (21-32); CHLORIDE LEVEL 103 MEQ/L (98-107); GLOMERULAR FILTRATION RATE > 60.0 (>39); GLUCOSE, FASTING 108 MG/DL (70-100); MAGNESIUM LEVEL 0.9 MG/DL (1.8-2.4); POTASSIUM SERUM 2.9 MEQ/L (3.5-5.1); SODIUM LEVEL 141 MEQ/L (136-145); TOTAL PROTEIN 5.9 GM/DL (6.4-8.2)
[2019-08-15 10:26] LABS: CA 125 23.9 U/ML (<30.2)
== END ==
LOC: M LAB 08:35
PROVIDERS: ATTEND Internal Medicine Hematology & Oncology
DX: C55 Malignant neoplasm of uterus, part unspecified (principal)

== ENCOUNTER → 2019-09-04 | Outpatient (CLI) | payer MEDICARE ==
[2019-09-04 09:16] LABS: BASO % 0.4 % (0.0-1.0); EOS % 0.6 % (0.0-3.0); HEMATOCRIT 28.2 % (36.0-47.0); HEMOGLOBIN 8.7 g/dl (12.0-15.5); LYMPH # 0.7 10^3/uL (1.5-5.0); LYMPH % 13.8 % (24.0-44.0); MEAN CORPUSCULAR HEMOGLOBIN 31.6 pg (27.0-33.0); MEAN CORPUSCULAR HGB CONC 30.9 g/dl (32.0-36.5); MEAN CORPUSCULAR VOLUME 102.5 fl (80.0-96.0); MONO # 0.6 10^3/uL (0.0-0.8); MONO % 11.2 % (0.0-5.0); NEUTROPHILS # 3.7 10^3/uL (1.5-8.5); NEUTROPHILS % 72.2 % (36.0-66.0); PLATELET COUNT, AUTOMATED 106 10^3/uL (150-450); RED BLOOD COUNT 2.75 10^6/uL (4.00-5.40); WHITE BLOOD COUNT 5.1 10^3/uL (4.0-10.0)
[2019-09-04 09:19] LABS: ALBUMIN 3.4 GM/DL (3.2-5.2); ALT/SGPT 16 U/L (12-78); BILIRUBIN,TOTAL 1.2 MG/DL (0.2-1.0); BLOOD UREA NITROGEN 10 MG/DL (7-18); CALCIUM LEVEL 6.9 MG/DL (8.8-10.2); CARBON DIOXIDE LEVEL 32 MEQ/L (21-32); CHLORIDE LEVEL 104 MEQ/L (98-107); CREATININE FOR GFR 0.62 MG/DL (0.55-1.30); GLOMERULAR FILTRATION RATE > 60.0 (>39); GLUCOSE, FASTING 108 MG/DL (70-100); MAGNESIUM LEVEL 1.1 MG/DL (1.8-2.4); POTASSIUM SERUM 3.1 MEQ/L (3.5-5.1); SODIUM LEVEL 144 MEQ/L (136-145); TOTAL PROTEIN 6.2 GM/DL (6.4-8.2)
[2019-09-04 11:28] LABS: CA 125 16.9 U/ML (<30.2)
== END ==
LOC: M LAB 08:16
PROVIDERS: ATTEND Internal Medicine Hematology & Oncology
DX: C54.9 Malignant neoplasm of corpus uteri, unspecified (principal)

== ENCOUNTER → 2019-09-26 | Outpatient (CLI) | payer MEDICARE ==
[2019-09-26 10:04] LABS: BASO % 0.5 % (0.0-1.0); EOS % 0.2 % (0.0-3.0); HEMATOCRIT 27.8 % (36.0-47.0); HEMOGLOBIN 8.9 g/dl (12.0-15.5); LYMPH # 0.7 10^3/uL (1.5-5.0); LYMPH % 17.4 % (24.0-44.0); MEAN CORPUSCULAR HEMOGLOBIN 31.8 pg (27.0-33.0); MEAN CORPUSCULAR VOLUME 99.3 fl (80.0-96.0); MONO # 0.5 10^3/uL (0.0-0.8); MONO % 12.7 % (0.0-5.0); NEUTROPHILS # 2.8 10^3/uL (1.5-8.5); NEUTROPHILS % 67.7 % (36.0-66.0); WHITE BLOOD COUNT 4.1 10^3/uL (4.0-10.0)
[2019-09-26 10:09] LABS: PLATELET COUNT, AUTOMATED 85 10^3/uL (150-450)
[2019-09-26 10:43] LABS: ALT/SGPT 11 U/L (12-78); BLOOD UREA NITROGEN 8 MG/DL (7-18); CALCIUM LEVEL 7.8 MG/DL (8.8-10.2); CARBON DIOXIDE LEVEL 30 MEQ/L (21-32); CHLORIDE LEVEL 103 MEQ/L (98-107); GLOMERULAR FILTRATION RATE > 60.0 (>39); GLUCOSE, FASTING 106 MG/DL (70-100); POTASSIUM SERUM 3.4 MEQ/L (3.5-5.1); SODIUM LEVEL 140 MEQ/L (136-145)
[2019-09-26 10:44] LABS: ALBUMIN 3.3 GM/DL (3.2-5.2); BILIRUBIN,TOTAL 0.9 MG/DL (0.2-1.0); MAGNESIUM LEVEL 1.2 MG/DL (1.8-2.4)
[2019-09-26 11:12] LABS: CA 125 18.9 U/ML (<30.2)
== END ==
LOC: M LAB 08:36
PROVIDERS: ATTEND Internal Medicine Hematology & Oncology
DX: C54.9 Malignant neoplasm of corpus uteri, unspecified (principal)

== ENCOUNTER → 2019-10-03 | Outpatient (CLI) | payer MEDICARE ==
[2019-10-03 09:16] LABS: BASO % 0.3 % (0.0-1.0); EOS % 0.5 % (0.0-3.0); HEMATOCRIT 29.8 % (36.0-47.0); HEMOGLOBIN 9.5 g/dl (12.0-15.5); LYMPH # 0.6 10^3/uL (1.5-5.0); MEAN CORPUSCULAR HEMOGLOBIN 31.9 pg (27.0-33.0); MEAN CORPUSCULAR HGB CONC 31.9 g/dl (32.0-36.5); MONO # 0.5 10^3/uL (0.0-0.8); MONO % 11.8 % (0.0-5.0); NEUTROPHILS # 2.9 10^3/uL (1.5-8.5); NEUTROPHILS % 71.6 % (36.0-66.0); PLATELET COUNT, AUTOMATED 170 10^3/uL (150-450); RED BLOOD COUNT 2.98 10^6/uL (4.00-5.40)
[2019-10-03 09:47] LABS: ALBUMIN 3.3 GM/DL (3.2-5.2); ALT/SGPT 12 U/L (12-78); BLOOD UREA NITROGEN 7 MG/DL (7-18); CALCIUM LEVEL 8.1 MG/DL (8.8-10.2); CARBON DIOXIDE LEVEL 31 MEQ/L (21-32); CHLORIDE LEVEL 103 MEQ/L (98-107); CREATININE FOR GFR 0.62 MG/DL (0.55-1.30); GLOMERULAR FILTRATION RATE > 60.0 (>39); GLUCOSE, FASTING 111 MG/DL (70-100); MAGNESIUM LEVEL 1.3 MG/DL (1.8-2.4); POTASSIUM SERUM 3.3 MEQ/L (3.5-5.1); SODIUM LEVEL 141 MEQ/L (136-145)
[2019-10-03 12:06] LABS: CA 125 19.7 U/ML (<30.2)
== END ==
LOC: M LAB 08:38
PROVIDERS: ATTEND Internal Medicine Hematology & Oncology
DX: C54.9 Malignant neoplasm of corpus uteri, unspecified (principal)

== ENCOUNTER 2020-01-16 20:56 | Emergency (ER) | payer MEDICARE ==
[~2020-01-16] VITALS: Ht 154.9 cm; Wt 82.3 kg
[2020-01-16 21:54] LABS: BASO % 0.3 % (0.0-1.0); EOS % 0.3 % (0.0-3.0); HEMATOCRIT 34.5 % (36.0-47.0); HEMOGLOBIN 11.2 g/dl (12.0-15.5); LYMPH # 0.7 10^3/uL (1.5-5.0); MEAN CORPUSCULAR HEMOGLOBIN 28.2 pg (27.0-33.0); MEAN CORPUSCULAR HGB CONC 32.5 g/dl (32.0-36.5); MEAN CORPUSCULAR VOLUME 86.9 fl (80.0-96.0); MONO # 0.7 10^3/uL (0.0-0.8); MONO % 5.9 % (0.0-5.0); NEUTROPHILS # 10.1 10^3/uL (1.5-8.5); PLATELET COUNT, AUTOMATED 246 10^3/uL (150-450); RED BLOOD COUNT 3.97 10^6/uL (4.00-5.40); WHITE BLOOD COUNT 11.6 10^3/uL (4.0-10.0)
--- NOTE | 2020-01-16 22:02 | REPVR ---
PROCEDURE INFORMATION: Exam: CT Head Without Contrast Exam date and time: 01/16/2020 9:39 PM Age: 74 years old Clinical indication: Pain; Headache; Additional info: CVA. History of a left upper lobe poorly differentiated aal-jvnja-tyzm lung carcinoma. TECHNIQUE: Imaging protocol: Computed tomography of the head without contrast. Radiation optimization: All CT scans at this facility use at least one of these dose optimization techniques: automated exposure control; mA and/or kV adjustment per patient size (includes targeted exams where dose is matched to clinical indication); or iterative reconstruction. Other technique: STROKE PROTOCOL was implemented. COMPARISON: 1. CT Head W/O FOLL BY WITH CONTR 05/08/2019 9:37 AM 2. MRI-Brain W/O FOLL BY WITH 05/22/2019 2:05:24 PM FINDINGS: Brain: There is a cystic lesion in the left frontal lobe that has decreased in size from 2.1 cm to 1.5 cm since the prior CT on 05/08/2019. However, the extent of vasogenic edema around the mass and local mass effect has increased in the left frontal lobe since the prior CT on 05/08/2019 and there is sulcal effacement in the left frontal lobe and mass effect on the frontal horn of the left lateral ventricle. There is a left to right midline shift of 4 mm. No uncal or tonsillar herniation is noted. No acute intracranial hemorrhage is seen. Ventricles: Normal size for age. No hydrocephalus. Bones/joints: The skull is intact. No suspicious osteolytic or osteoblastic lesion. The nasal septum is deviated to the right of midline. Sinuses: The imaged portions of the sinuses are well-aerated. No air-fluid levels are noted in the sinuses. Mastoid air cells: Clear. Orbits: Incidental note is made of a right lens implant. The globes and orbits are intact. Soft tissues: There is soft tissue swelling in the right side of the forehead. There is a 7 mm oval-shaped calcification in the scalp in the right forehead, which is unchanged compared to the prior CT on 05/08/2019. There is a small protuberance of the skin in the right supraorbital region, which is similar in appearance compared to the prior CT on 05/08/2019. IMPRESSION: 1. Interval decrease in the size of the cystic lesion in the left frontal lobe from 2.1 cm to 1.5 cm since the prior [address] head on 05/08/2019, but the vasogenic edema surrounding the mass has progressed and there is local mass effect, sulcal effacement, and a left to right midline shift of 4 mm. 2. Soft tissue swelling in the right side of the forehead. ASSESSMENT: ASPECTS ([place] Stroke Program Early CT Score) is 10. Electronically signed by: Esteban May On 01/16/2020 22:02:18 PM
[2020-01-16 22:13] LABS: INR 1.15; PROTHROMBIN TIME 14.4 SECONDS (11.8-14.0)
[2020-01-16 22:14] LABS: PARTIAL THROMBOPLASTIN TIME 28.6 SECONDS (25.0-38.4)
[2020-01-16 22:16] LABS: BLOOD UREA NITROGEN 13 MG/DL (7-18); CALCIUM LEVEL 8.8 MG/DL (8.8-10.2); CARBON DIOXIDE LEVEL 28 MEQ/L (21-32); CHLORIDE LEVEL 102 MEQ/L (98-107); CK-MB VALUE MASS < 1.0 NG/ML (<3.6); CPK CREATINE PHOSPHOKINASE 96 U/L (26-192); CREATININE FOR GFR 0.85 MG/DL (0.55-1.30); GLOMERULAR FILTRATION RATE > 60.0 (>39); GLUCOSE, FASTING 153 MG/DL (70-100); MB/CK RELATIVE INDEX 1.04 (< OR =4); POTASSIUM SERUM 3.2 MEQ/L (3.5-5.1); SODIUM LEVEL 137 MEQ/L (136-145); TROPONIN I 0.02 NG/ML (< 0.10)
--- NOTE | 2020-01-16 22:16 | REPVR ---
PROCEDURE INFORMATION: Exam: CT Cervical Spine Without Contrast Exam date and time: 01/16/2020 9:39 PM Age: 74 years old Clinical indication: Injury or trauma; Fall; Initial encounter; Blunt trauma; Additional info: CVA. History of a poorly differentiated non-small cell carcinoma in the left upper lobe. TECHNIQUE: Imaging protocol: Computed tomography images of the cervical spine without contrast. Radiation optimization: All CT scans at this facility use at least one of these dose optimization techniques: automated exposure control; mA and/or kV adjustment per patient size (includes targeted exams where dose is matched to clinical indication); or iterative reconstruction. COMPARISON: PT PET/CT Skull/mid thigh 04/12/2019 10:18 AM FINDINGS: Vertebrae: There is straightening of the normal cervical lordosis. There is no fracture or subluxation. The vertebral body heights are preserved. There is no cervical rib. No suspicious osteolytic or osteoblastic lesion is noted. Discs/Spinal canal/Neural foramina: There are severe degenerative changes of the atlantoaxial joint. There is loss of disc height at the C6-C7 level. There are endplate spurs and osteoarthritis of the facet joints at several levels in the cervical spine. There is mild left neural foraminal stenosis at the C4-C5 level and mild right neural foraminal stenosis at the C5-C6 level. No spinal canal stenosis is noted. Prevertebral Space: No prevertebral soft tissue swelling is noted. Soft tissues: Unremarkable. No soft tissue fluid collection is noted. Thyroid: There is a 7 mm cystic nodule in the right lobe of the thyroid gland and a 4 mm calcification in the left lobe of the thyroid gland, for which follow-up is not necessary. Lymph nodes: No cervical lymphadenopathy is noted. Limited lungs: There are 8 mm, 8 mm, and 11 mm irregular masses in the left lung apex in the location of a previously noted larger left upper lobe mass extending into the left hilum and mediastinum in the PET-CT on 04/12/2019. There is also a 4 mm solid pulmonary nodule in the right lung apex, which is stable compared to the prior PET/CT on 04/12/2019. The lungs were not fully imaged. IMPRESSION: 1. Straightening of the normal cervical lordosis, but no fracture or subluxation in the cervical spine. 2. C4-C5: Mild left neural foraminal stenosis. 3. C5-C6: Mild right neural foraminal stenosis. 4. 8 mm, 8 mm, and 11 mm irregular masses in the left lung apex in the location of a previously noted larger left upper lobe mass extending into the left hilum and mediastinum in the PET-CT on 04/12/2019. [facility] follow up recommendations for incidental nodules are not indicated. Follow up per patient's medical condition. 5. 4 mm solid pulmonary nodule in the right lung apex, which is stable compared to the prior PET/CT on 04/12/2019. COMMENTS: Consistent with the [employer]'s Incidental Findings Committee white paper (J Am Blanca Radiol 2015): In patients aged 35 years and older with an incidental thyroid nodule equal to or greater than 1.[address], MRI or extrathyroidal US, further evaluation with dedicated thyroid US is recommended for patients with normal life expectancy and without comorbidities. For smaller nodules without suspicious features, no further evaluation or follow up is recommended. THIS REPORT CONTAINS FINDINGS THAT MAY BE CRITICAL TO PATIENT CARE. The exam findings were verbally communicated by me to LEVI Lee via telephone conference at 10:10 PM EDT on 01/16/2020. The findings were acknowledged and understood. Electronically signed by: Esteban May On 01/16/2020 22:16:26 PM
[2020-01-16] MEDS ORDERED: dexameTHASONE 20MG/5ML VIAL (J1100 PER 1MG) IV ONE (23:00)
[2020-01-17 01:15] VITALS: BP 168/79
--- NOTE | 2020-01-17 08:19 | ECGEPIP ---
[facility] - ED Test Date: 2020-01-16 Pat Name: SHANTHI VÁZQUEZ Department: Room: - Gender: Female [employer]: ghanshyam : 1945 Requested By: LEVI Burris Order Number: [id number] Reading MD: Demian Thomas Measurements Intervals Stuart Rate: 109 P: 62 KS: 134 QRS: 59 QRSD: 76 T: 56 QT: 331 QTc: 447 Interpretive Statements SINUS TACHYCARDIA WITH OCCASIONAL SUPRAVENTRICULAR PREMATURE COMPLEXES MODERATE ST DEPRESSION SIMILAR TO 03/16/19 Electronically Signed on 01-17-2020 8:19:21 EDT by Demian Thomas
--- NOTE | 2020-01-17 08:23 | REP ---
PORTABLE CHEST X-RAY: Single view. HISTORY: CVA. COMPARISON CHEST X-RAY: March 16, 2019. FINDINGS: A right-sided Gvyxgk-J-Slbe catheter is noted in place with its tip in the expected location of the right atrial junction with the SVC. There is linear fibrosis versus plate-like atelectasis in the left perihilar region in the area where the prior study showed an infiltrate. The lung thompson are otherwise clear. Heart is not enlarged. IMPRESSION: Linear fibrosis versus plate-like atelectasis on the left. Otherwise no acute disease. Right-sided Etxxme-W-Brra. Electronically Signed by Helder Lin MD 01/17/2020 05:09 P
== END 2020-01-17 01:29 | disposition short-term general hospital (02) ==
LOC: M ED 20:56 → EDSEX 20:56 → EDBD 20:56 → M ED 01-17 01:29
DX: C54.1 Malignant neoplasm of endometrium (principal); C79.31 Secondary malignant neoplasm of brain; G93.6 Cerebral edema; E07.9 Disorder of thyroid, unspecified; R93.89 Abnormal findings on diagnostic imaging of other specified body structures; M48.02 Spinal stenosis, cervical region; R91.8 Other nonspecific abnormal finding of lung field; R00.0 Tachycardia, unspecified; E11.9 Type 2 diabetes mellitus without complications; E78.5 Hyperlipidemia, unspecified; I10 Essential (primary) hypertension; Z79.52 Long term (current) use of systemic steroids; Z79.899 Other long term (current) drug therapy; Z95.828 Presence of other vascular implants and grafts
CPT/HCPCS: 70450; 71045; 72125; 80048; 82550; 82553; 84484; 85025; 85610; 85730; 86850; 86900; 86901; 93005; 93041; 94760; 96374; 99285; J1100

== ENCOUNTER → 2020-01-16 | Outpatient (CLI) | payer MEDICARE ==
[2020-01-16 11:50] LABS: ALBUMIN 3.5 GM/DL (3.2-5.2); ALT/SGPT 11 U/L (12-78); BILIRUBIN,TOTAL 1.2 MG/DL (0.2-1.0); BLOOD UREA NITROGEN 14 MG/DL (7-18); CALCIUM LEVEL 9.1 MG/DL (8.8-10.2); CARBON DIOXIDE LEVEL 31 MEQ/L (21-32); CHLORIDE LEVEL 101 MEQ/L (98-107); CREATININE FOR GFR 0.71 MG/DL (0.55-1.30); GLOMERULAR FILTRATION RATE > 60.0 (>39); GLUCOSE, FASTING 111 MG/DL (70-100); POTASSIUM SERUM 3.4 MEQ/L (3.5-5.1); SODIUM LEVEL 138 MEQ/L (136-145); TOTAL PROTEIN 6.9 GM/DL (6.4-8.2)
== END ==
LOC: M LAB 10:26
PROVIDERS: ATTEND Internal Medicine Hematology & Oncology
DX: C55 Malignant neoplasm of uterus, part unspecified (principal)

== ENCOUNTER → 2020-02-08 | Outpatient (REF) | payer MEDICARE ==
[~2020-02-08] MED LIST changes: +ELIQ5TAB PO; +LEVE10003 PO; +MEGE40TA PO
[2020-02-08 17:27] LABS: ALBUMIN 3.2 GM/DL (3.2-5.2); ALT/SGPT 23 U/L (12-78); BILIRUBIN,TOTAL 1.9 MG/DL (0.2-1.0); BLOOD UREA NITROGEN 23 MG/DL (7-18); CALCIUM LEVEL 8.3 MG/DL (8.8-10.2); CARBON DIOXIDE LEVEL 30 MEQ/L (21-32); CHLORIDE LEVEL 101 MEQ/L (98-107); CHOLESTEROL LEVEL 189 MG/DL (<200); CHOLESTEROL RISK RATIO 3.098 (<5); GLOMERULAR FILTRATION RATE > 60.0 (>39); GLUCOSE, FASTING 102 MG/DL (70-100); HDL CHOLESTEROL 61 MG/DL (>40); LDL CHOLESTEROL 106 MG/DL (<100); NON-HDL-C 128 MG/DL; POTASSIUM SERUM 4.4 MEQ/L (3.5-5.1); SODIUM LEVEL 136 MEQ/L (136-145); TRIGLYCERIDES LEVEL 110 MG/DL (<150)
[2020-02-08 17:58] LABS: HEMOGLOBIN A1c 6.1 %
== END ==
LOC: M SFHCCLAY 10:17
PROVIDERS: ATTEND Family Medicine
DX: E11.9 Type 2 diabetes mellitus without complications (principal); E78.5 Hyperlipidemia, unspecified

== ENCOUNTER → 2020-02-28 | Outpatient (REF) | payer MEDICARE ==
[2020-03-26 12:46] LABS: APPEARANCE, URINE CLOUDY (CLEAR); BACTERIA, URINE AUTO NEGATIVE (NEGATIVE); BILIRUBIN, URINE AUTO NEGATIVE (NEGATIVE); BLOOD, URINE BLOOD NEGATIVE (NEGATIVE); COLOR, URINE AMBER (YELLOW); GLUCOSE, URINE (UA) AUTO NEGATIVE (NEGATIVE); KETONE, URINE AUTO NEGATIVE (NEGATIVE); LEUKOCYTE ESTERASE, URINE AUTO 2+ (NEGATIVE); MUCUS, URINE SMALL (NEGATIVE); NITRITE, URINE AUTO NEGATIVE (NEGATIVE); PROTEIN, URINE AUTO NEGATIVE (NEGATIVE); RBC, URINE AUTO 5 /HPF (0-3); SQUAMOUS EPITHELIAL CELL UR AU 8 /HPF (0-6); WBC, URINE AUTO 125 /HPF (0-3)
== END ==
LOC: M SHH 12:40
PROVIDERS: ATTEND Nurse Practitioner Family
DX: R39.81 Functional urinary incontinence (principal)

== ENCOUNTER 2020-04-12 10:01 | Emergency (ER) | payer MEDICARE ==
[~2020-04-12] VITALS: Ht 152.4 cm; Wt 79.1 kg
[~2020-04-12 10:01] MED LIST changes: -ELIQ5TAB PO; -LEVE10003 PO; -MEGE40TA PO
[2020-04-12] MEDS ORDERED: LEVE10003 PO (10:21)
[2020-04-12] MEDS ORDERED: ELIQ5TAB PO (10:21)
[2020-04-12] MEDS ORDERED: MEGE40TA PO (10:22)
--- NOTE | 2020-04-12 10:46 | REPVR ---
PROCEDURE INFORMATION: Exam: CT Head Without Contrast Exam date and time: 04/12/2020 10:27 AM Age: 75 years old Clinical indication: Injury or trauma; Fall; Initial encounter; Blunt trauma (contusions or hematomas); Consciousness not specified; Additional info: Fall on thinners TECHNIQUE: Imaging protocol: Computed tomography of the head without contrast. Radiation optimization: All CT scans at this facility use at least one of these dose optimization techniques: automated exposure control; mA and/or kV adjustment per patient size (includes targeted exams where dose is matched to clinical indication); or iterative reconstruction. COMPARISON: CT Head without contrast 01/16/2020 9:35 PM FINDINGS: Brain: There is stable vasogenic edema/post treatment change within the left frontal lobe. Subtle underlying known cystic lesion is less well visualized. There is decreased mass effect the left frontal horn. There is no hemorrhage. Mild diffuse volume loss is within the range of normal for patient age. There are small vessel ischemic changes within the periventricular and subcortical white matter. Ventricles: No ventriculomegaly. There is decreased mass effect upon the left frontal horn. Bones/joints: Unremarkable. No acute fracture. Sinuses: Visualized sinuses are unremarkable. No fluid levels. Mastoid air cells: Visualized mastoid air cells are well aerated. Soft tissues: Unremarkable. IMPRESSION: 1. No acute hemorrhage or calvarial fracture. 2. Stable vasogenic edema/post treatment change within the left frontal lobe. Ill-defined cystic lesion within the left frontal lobe, less well seen. Decreased mass effect upon the left frontal horn. Electronically signed by: Melody Bahena On 04/12/2020 10:46:20 AM
--- NOTE | 2020-04-12 10:51 | REPVR ---
PROCEDURE INFORMATION: Exam: CT Cervical Spine Without Contrast Exam date and time: 04/12/2020 10:27 AM Age: 75 years old Clinical indication: Injury or trauma; Fall; Initial encounter; Blunt trauma; Additional info: Fall on thinners TECHNIQUE: Imaging protocol: Computed tomography images of the cervical spine without contrast. Radiation optimization: All CT scans at this facility use at least one of these dose optimization techniques: automated exposure control; mA and/or kV adjustment per patient size (includes targeted exams where dose is matched to clinical indication); or iterative reconstruction. COMPARISON: CT Spine,cervical w/o contrast 01/16/2020 9:35 PM FINDINGS: Vertebrae: No acute fracture. Normal alignment. Discs/Spinal canal/Neural foramina: There is focal narrowing along the anterior C1/C2 articulation. There is moderate to severe intervertebral disc space loss C6/7. There is multilevel facet hypertrophy. There is fusion of the left C3 and C4 posterior elements. Soft tissues: Unremarkable. Lungs: Lung apices are normal. IMPRESSION: No acute fracture. Electronically signed by: Melody Bahena On 04/12/2020 10:51:13 AM
[2020-04-12 10:57] VITALS: BP 173/80
--- NOTE | 2020-04-12 14:28 | ED PDOC ---
Post-Departure Follow-Up dr granados faxed formal report of ct head and c spine for Eryn Sarah MD Apr 12, 2020 14:28
== END 2020-04-12 10:59 | disposition home or self-care (01) ==
LOC: M ED 10:01
DX: S00.03XA Contusion of scalp, initial encounter (principal); W01.198A Fall on same level from slipping, tripping and stumbling with subsequent striking against other object, initial encounter; Y92.019 Unspecified place in single-family (private) house as the place of occurrence of the external cause; G93.6 Cerebral edema; E11.9 Type 2 diabetes mellitus without complications; I10 Essential (primary) hypertension; E78.5 Hyperlipidemia, unspecified; Z79.01 Long term (current) use of anticoagulants; Z79.899 Other long term (current) drug therapy

== ENCOUNTER → 2020-06-05 | Outpatient (REF) | payer MEDICARE ==
[~2020-06-05] MED LIST changes: +ELIQ5TAB PO; +LEVE10003 PO; +MEGE40TA PO
[2020-06-05 17:42] LABS: BASO # 0.1 10^3/uL (0.0-0.2); BASO % 0.5 % (0.0-1.0); HEMATOCRIT 39.8 % (36.0-47.0); LYMPH # 1.1 10^3/uL (1.5-5.0); LYMPH % 8.8 % (24.0-44.0); MEAN CORPUSCULAR HEMOGLOBIN 30.9 pg (27.0-33.0); MEAN CORPUSCULAR HGB CONC 32.7 g/dl (32.0-36.5); MEAN CORPUSCULAR VOLUME 94.5 fl (80.0-96.0); MONO # 0.7 10^3/uL (0.0-0.8); NEUTROPHILS % 81.4 % (36.0-66.0); PLATELET COUNT, AUTOMATED 208 10^3/uL (150-450); RED BLOOD COUNT 4.21 10^6/uL (4.00-5.40); WHITE BLOOD COUNT 12.2 10^3/uL (4.0-10.0)
[2020-06-05 20:07] LABS: BLOOD UREA NITROGEN 28 MG/DL (7-18); CALCIUM LEVEL 8.4 MG/DL (8.8-10.2); CARBON DIOXIDE LEVEL 31 MEQ/L (21-32); CHLORIDE LEVEL 96 MEQ/L (98-107); CREATININE FOR GFR 0.73 MG/DL (0.55-1.30); GLOMERULAR FILTRATION RATE > 60.0 (>39); GLUCOSE, FASTING 145 MG/DL (70-100); POTASSIUM SERUM 3.1 MEQ/L (3.5-5.1); SODIUM LEVEL 138 MEQ/L (136-145)
[2020-06-05 21:20] LABS: HEMOGLOBIN A1c 5.4 %
== END ==
LOC: M SHH 16:45
PROVIDERS: ATTEND Family Medicine
DX: R60.9 Edema, unspecified (principal); E11.9 Type 2 diabetes mellitus without complications

== ENCOUNTER → 2020-07-05 | Outpatient (CLI) | payer MEDICARE ==
[~2020-07-05] MED LIST changes: +ISOVUE-370 76% 100ML VIAL As Ordered ONE
--- NOTE | 2020-07-05 18:16 | REP ---
INDICATION: NEOPLASM OF UNSPEC BEHAVIOR W/ UTERINE CA. COMPARISON: Comparison chest CT study March 02, 2019. Comparison PET-CT April 12, 2019.. TECHNIQUE: Helical scanning is acquired. 3 mm axial images re-formatted. Coronal and sagittal MPR images are generated. The contrast enhancement dose is 100 mL of intravenous Isovue 370. FINDINGS: A right-sided Ducmdr-Z-Ufqo catheter is noted. There has been significant improvement in the bulky left upper lobe mass lesion in the interval since the March and April CT and PET-CT imaging studies. Residual pleural based nodule is seen in the left upper lobe measuring 2.7 cm in greatest diameter, previously 7.8 cm. There is AP window region mediastinal adenopathy although this is much improved as well. This measures 1.5 x 3.5 cm. No hilar adenopathy is appreciated today. There are some subcentimeter nodular changes in the left lung apex with some atelectasis associated. These were not apparent previously. There is a small thin walled cavity anterior to the larger lung nodule in the left upper lobe which is also new finding. There is mild diffuse mural thickening in the esophageal wall without mass lesion. A small hiatal hernia is noted. There is no CT evidence of pulmonary embolus. No aortic dissection or aneurysm is apparent. No pleural or pericardial effusion is seen. No supraclavicular or axillary mass is seen. Previously noted right inferior breast/chest wall nodule is no longer seen. On bone window settings, there is sclerotic change in the subcortical humeral head on the right where prior study showed radiolucency. This may reflect healing metastatic disease. There is subtle flattening of the articular margin of the humeral head here. Nose no new skeletal metastatic site is appreciated. IMPRESSION: Significant improvement consistent with partial response to treatment. Some residual AP window region mediastinal adenopathy and nodular disease in the left upper lobe seen. Improvement noted in right humeral head metastasis. The right lateral chest wall subcutaneous nodule is no longer apparent. <Electronically signed by Jaylon Lin > 07/05/20 [id number]
--- NOTE | 2020-07-05 18:25 | REP ---
INDICATION: NEOPLASM OF UNSPEC BEHAVIOR W/ UTERINE CA. COMPARISON: Comparison PET-CT study 04/12/2019.. TECHNIQUE: Helical scanning is acquired and 3 mm axial images re-formatted. Coronal and sagittal MPR images are generated. The CT contrast enhancement dose is 100 mL of intravenous Isovue 370. FINDINGS: A small sliding-type hiatal hernia is noted. Granulomatous calcifications are noted in the spleen. No significant splenic lesion is seen. There is a hypervascular nodule in the periphery of the left lobe of the liver high near the dome of the diaphragm. This measures 18 mm in greatest diameter. It shows washout on the delayed postcontrast sequence similar to blood pool. these were not visualized on prior CT studies although they were accomplished without contrast. These are nonspecific. There is mild diffuse fatty infiltration of the liver. There are 1 or 2 granulomatous calcifications in the liver as well. No adrenal lesion is seen. No abnormality is noted in the pancreas. There is a small calcification at the fundus the gallbladder consistent with a small is gallstone. There is an irregularly shaped intrarenal calculus in the lower pole collecting system of the right kidney measuring 9 mm. No hydronephrosis is seen. No other renal lesion is seen. No retroperitoneal mass or adenopathy is observed. Uterus is surgically absent. Urinary bladder is unremarkable. There is mild left colonic diverticulosis without CT evidence of diverticulitis. No abdominal or peritoneal mass lesion is observed. On bone window settings, there is a 1.1 cm radiolucency in the inferior pubic ramus near the symphysis on the left. Some activity was seen here on previous PET-CT. There is a large sclerotic metastatic focus in the right iliac crest measuring 4 cm in greatest diameter. No mass effect is seen. This is larger than the previously noted radiolucent lesion on the April 12, 2019 but is now sclerotic. No other focal skeletal metastatic site is seen. IMPRESSION: 1. Intrarenal nephrolithiasis. Old granulomatous disease. 2. There are 2 hypervascular liver nodules which could be hypervascular metastases versus is a benign lesion such as adenoma or focal nodular hyperplasia. There is some fatty infiltration of the liver and show old granulomatous calcifications are noted in the liver and spleen. 3. There is a 4 cm sclerotic area in the right iliac crest consistent with treated metastatic disease. A 1.1 cm radiolucent lesion is seen in the left inferior pubic ramus. Otherwise negative. <Electronically signed by Jaylon Lin > 07/05/20 [id number]
--- NOTE | 2020-07-05 18:30 | REP ---
INDICATION: NEOPLASM OF UNSPEC BEHAVIOR W/ UTERINE CA. COMPARISON: Comparison PET-CT imaging April 12, 2019. Comparison is made with a CT images obtained for radiation therapy on April 27, 2019 as well.. TECHNIQUE: Helical scanning is acquired and 3 mm axial images re-formatted. 100 mL of intravenous Isovue 370 is administered. Coronal and sagittal MPR images are generated. FINDINGS: Again noted is an endosteal lesion with increased attenuation of the marrow space in the proximal diaphysis of the left femur. There is some thinning of the endosteal surface of the cortex circumferentially in a pattern essentially unchanged from April 27, 2019 imaging. Multiplanar reformations images demonstrate a ill-defined sclerotic margin at the cranial and caudal margins of the lesion. The lesion measures 10 cm in craniocaudal span. There is no observable extraosseous extent. No evidence of pathologic fracture is seen. There is osteoarthritis at the knee. IMPRESSION: 10 cm intramedullary metastatic lesion in the left proximal femur with some sclerotic margins developing proximally and distally. No pathologic fracture or extraosseous extent seen. <Electronically signed by Jaylon Lin > 07/05/20 [id number]
== END ==
LOC: M RAD 13:09
PROVIDERS: ATTEND Internal Medicine Hematology & Oncology
DX: D49.59 Neoplasm of unspecified behavior of other genitourinary organ (principal); C55 Malignant neoplasm of uterus, part unspecified; C79.51 Secondary malignant neoplasm of bone; Z95.828 Presence of other vascular implants and grafts; K44.9 Diaphragmatic hernia without obstruction or gangrene; K76.0 Fatty (change of) liver, not elsewhere classified; K57.30 Diverticulosis of large intestine without perforation or abscess without bleeding; N20.0 Calculus of kidney; K76.89 Other specified diseases of liver
CPT/HCPCS: 71260; 73701; 74177; Q9967

== ENCOUNTER 2020-07-23 14:10 | Observation (INO) | payer MEDICARE ==
[2020-07-23] MEDS: SUCRALFATE 1 GM TAB PO SCH
[~2020-07-23 14:10] MED LIST changes: -ISOVUE-370 76% 100ML VIAL As Ordered ONE
[2020-07-23 14:44] LABS: HEMATOCRIT 44.5 % (36.0-47.0); HEMOGLOBIN 15.2 g/dl (12.0-15.5); MEAN CORPUSCULAR HEMOGLOBIN 31.3 pg (27.0-33.0); MEAN CORPUSCULAR HGB CONC 34.2 g/dl (32.0-36.5); MEAN CORPUSCULAR VOLUME 91.6 fl (80.0-96.0); PLATELET COUNT, AUTOMATED 142 10^3/uL (150-450); RED BLOOD COUNT 4.86 10^6/uL (4.00-5.40); WHITE BLOOD COUNT 11.8 10^3/uL (4.0-10.0)
[2020-07-23] MEDS ORDERED: LIDOCAINE 2% 5ML JELLY UROJET TOP ONE (14:45)
--- NOTE | 2020-07-23 14:47 | REP ---
INDICATION: Altered Mental Status COMPARISON: 01/16/2020 TECHNIQUE: Portable AP view of the chest FINDINGS: The mediastinum and cardiac silhouette are stable and within normal limits for portable technique. Unpufz-H-Ouqn with tip in the right atrium remains stable. Lung thompson demonstrate chronic changes without discrete consolidation, effusion, or pneumothorax. Skeletal structures are intact. IMPRESSION: No definite acute cardiopulmonary process appreciated. <Electronically signed by Parvez Barnett > 07/23/20 [id number]
[2020-07-23] MEDS ORDERED: ACETAMINOPHEN 325 MG TAB PO ONE (15:00)
--- NOTE | 2020-07-23 15:08 | REP ---
INDICATION: altered COMPARISON: 04/12/2020 TECHNIQUE: Axial noncontrast images from the skull base to the thoracic inlet with coronal reformations. This CT examination was performed using the following dose reduction techniques: Automated exposure control, adjustment of mA and/or kv according to the patient's size, and use of iterative reconstruction technique. FINDINGS: Age-related with periventricular leukomalacia, old left frontal infarction, atrophy and microvascular ischemic changes are appreciated. The ventricles and sulci are symmetric. Santoyo-white differentiation is maintained. There is no evidence for acute intracranial hemorrhage, mass/mass effect, pathology or infarction. No extra-axial fluid collection. Calvarium is intact. Paranasal sinuses and mastoid air cells are clear. IMPRESSION: Age related atrophy and microvascular ischemic changes. No acute intracranial hemorrhage, infarction, or mass/mass effect. <Electronically signed by Parvez Barnett > 07/23/20 [id number]
[2020-07-23 15:26] LABS: ALBUMIN 3.5 GM/DL (3.2-5.2); ALT/SGPT 40 U/L (12-78); BILIRUBIN,DIRECT 0.6 MG/DL (0.0-0.2); BILIRUBIN,TOTAL 2.3 MG/DL (0.2-1.0); BLOOD UREA NITROGEN 24 MG/DL (7-18); CALCIUM LEVEL 8.2 MG/DL (8.8-10.2); CARBON DIOXIDE LEVEL 30 MEQ/L (21-32); CHLORIDE LEVEL 98 MEQ/L (98-107); CK-MB VALUE MASS 3.2 NG/ML (<3.6); CPK CREATINE PHOSPHOKINASE < 7 U/L (26-192); CREATININE FOR GFR 0.72 MG/DL (0.55-1.30); GLOMERULAR FILTRATION RATE > 60.0 (>39); GLUCOSE, FASTING 210 MG/DL (70-100); MB/CK RELATIVE INDEX 45.71 (< OR =4); POTASSIUM SERUM 3.2 MEQ/L (3.5-5.1); SODIUM LEVEL 140 MEQ/L (136-145); TOTAL PROTEIN 6.3 GM/DL (6.4-8.2); TROPONIN I 0.04 NG/ML (< 0.10)
[2020-07-23] MEDS ORDERED: NS 1,000 ML IV ONE (15:30)
[2020-07-23 15:43] LABS: ATYPICAL LYMPH 2 % (0-5); LYMPHOCYTES 8 % (16-44); METAMYELOCYTES 1 % (0-0); MONOCYTES 1 % (0-5); NEUTROPHILS 86 % (28-66)
[2020-07-23 15:45] LABS: POLYCHROMASIA 1+
[2020-07-23 15:47] LABS: PLATELET ESTIMATE DECREASED (NORMAL)
[2020-07-23 16:38] LABS: ABG BASE EXCESS 5.6 (-2.0-2.0); ABG HCO3 28.6 MEQ/L (22.0-26.0); ABG O2 SATURATION 95.8 % (95.0-99.0); ABG PARTIAL PRESSURE CO2 36.3 mmHg (35.0-45.0); ABG PARTIAL PRESSURE O2 79.9 mmHg (75.0-100.0); ABG STANDARD HCO3 29.5 MEQ/L (22.0-26.0); ABG TOTAL CO2 29.7 MEQ/L (23.0-31.0); ABG pH (ARTERIAL) 7.514 UNITS (7.350-7.450)
[2020-07-23 16:39] LABS: RSV AMPLIFICATION NEGATIVE (NEGATIVE)
[2020-07-23] MEDS ORDERED: POTASSIUM CHLORIDE 10 MEQ SR TABLET PO ONE (16:45)
[2020-07-23] MEDS ORDERED: DEXA2TA PO (17:16)
[2020-07-23] MEDS ORDERED: FURO20TA2 PO (17:16)
[2020-07-23] MEDS ORDERED: NYST10006 TOP (17:16)
[2020-07-23] MEDS ORDERED: POTA1TAB14 PO (17:16)
[2020-07-23] MEDS ORDERED: D 101000 PO (17:16)
--- NOTE | 2020-07-23 18:09 | HPEPDOC ---
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 Patient wears a diaper at home and has 24 7 With caregivers and family and has been in bed for the past 5 months with a new stage II sacral decubiti as noted for the past 5-6 days .patient otherwise denies any nausea vomiting abdominal pain. She denies any shortness of breath fever or chills dizziness lightheadedness fall no prior episode of bloody stools in the past, does not take any NSAIDs anticoagulants or antiplatelet medications with history of peptic ulcer disease and esophagitis gastritis colon polyps arteriovenous malformations hemorrhoids, and no repeat bloody stools after the one episode was seen at home. According to the daughter patient needs assistance with her meals she is shaking and has not been walking for at least 5 months. In the emergency room history was given by the patient's daughter at the bedside as the patient has chronic dementia. Year with chest x-ray were negative patient had a temperature 100.0 hospitalist was asked to admit the patient for low-grade fever and bloody stools. 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 REVIEW OF SYSTEMS: 10 point systems negative aside from positive findings in HPI HOME MEDICATIONS: Please see below. PHYSICAL EXAMINATION: VSSee below . GENERAL APPEARANCE: Awake alert oriented to person and place this oriented to time no respiratory distress. Face is symmetric HEENT: Moist mucous membranes no cervical lymphadenopathy no thyromegaly no JVD no pharyngeal erythema CARDIOVASCULAR: S1-S2 regular rate and rhythm LUNGS: Clear to auscultation no wheezing or rales ABDOMEN: Obese soft nontender nondistended positive bowel sounds 4 quadrants no rebound or guarding stage II sacral decubitus bilaterally EXTREMITIES: Chronic 2+ edema EKG sinus rhythm ST depressions LABORATORY DATA: See below. IMAGING: CT head see below chest x-ray see below MICROBIOLOGY: Please see below. 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 Patient wears a diaper at home and has 24 7 With caregivers and family and has been in bed for the past 5 months with a new stage II sacral decubiti as noted for the past 5-6 days .patient otherwise denies any nausea vomiting abdominal pain. She denies any shortness of breath fever or chills dizziness lightheadedness fall no prior episode of bloody stools in the past, does not take any NSAIDs anticoagulants or antiplatelet medications with history of peptic ulcer disease and esophagitis gastritis colon polyps arteriovenous malformations hemorrhoids, and no repeat bloody stools after the one episode was seen at home. According to the daughter patient needs assistance with her meals she is shaking and has not been walking for at least 5 months. In the emergency room history was given by the patient's daughter at the bedside as the patient has chronic dementia. Year with chest x-ray were negative patient had a temperature 100.0 hospitalist was asked to admit the patient for low-grade fever and bloody stools. Problem list: Bright red blood per rectum Acute GI bleed Acute blood loss Abnormal cardiac markers/abnormal EKG Bilateral sacral decubitus ulcers stage II Metastatic endometrial cancer to the brain bones lungs subcutaneous status post radiation and hysterectomy Functional paraplegia Deconditioning Chronic dementia Obesity Hypertension Diabetes dyslipidemia Chronic lower extremity edema Lactic acidosis PLAN: Patient will be admitted for observation regarding bright red blood per rectum.. Compression stockings for DVT prophylaxis. Hemoglobin and hematocrit will be cycled every 6 hourly check Hemoccult stool avoid anticoagulants and antiplatelet medications. Check CT abdomen and pelvis to rule out colonic malignancy/mass.Telemedicine with male infertility specialist Dr. Velasquez. Air mattresses and turned every 2 hourly to reposition. Resume all home medications assisted ambulation due to risk of pathologic fracture with history of metastatic cancer to the bone status post radiation. Assistance with meals. ARU PTOT consulted. Resume anti-seizure medications and seizure precautions. Two-dimensional echocardiogram and cycle cardiac markers every 6 hourly. Due to bright red blood per rectum we will not be able to get antiplatelet medications are anticoagulants. Consistent carbohydrate 2 g sodium diet hypoglycemic protocol insulin sliding scale with every before meals at bedtime fingersticks with coverage per [facility] protocol. Despite having a low-grade temperature of 100.0, patient will not be given empiric antibiotics for now. Chest x-ray and urinalysis are negative Covid 19 is pending. Check hemoglobin A1c pro calcitonin ESR and CRP. Trial of IV fluids until lactic acidosis has resolved. Vital Signs Vital Signs Date Time Temp Pulse Resp B/P (MAP) Pulse Ox O2 Delivery O2 Flow Rate FiO2 07/23/20 17:25 93 20 97 Room Air 07/23/20 17:15 165/81 (109) 07/23/20 14:51 100.0 Laboratory Data Labs 24H Laboratory Tests 2 07/23/20 14:31: Immature Granulocyte % (Auto) , Neutrophils (%) (Auto) , Nucleated Red Blood Cells % (auto) 0.6H, Neutrophils 86H, Band Neutrophils 2, Lymphocytes (Manual) 8L, Monocytes (Manual) 1, Metamyelocytes 1H, Atypical Lymphocytes 2, Polychromasia 1+, Platelet Estimate DECREASED, Anion Gap 12, Glomerular Filtration Rate > 60.0, Lactic Acid Level 5.3*H, Calcium Level 8.2L, Total Bilirubin 2.3H, Direct Bilirubin 0.6H, Aspartate Amino Transf (AST/SGOT) 22, Alanine Aminotransferase (ALT/SGPT) 40, Alkaline Phosphatase 79, Total Creatine Kinase < 7L, Creatine Kinase MB 3.2, Creatine Kinase MB Relative Index 45.71H, Troponin I 0.04, Total Protein 6.3L, Albumin 3.5, Albumin/Globulin Ratio 1.3, Thyroid Stimulating Hormone (TSH) 1.100 07/23/20 14:35: Urine Color YELLOW, Urine Appearance HAZY, Urine pH 7.0, Urine Specific [place] 1.009, Urine Protein NEGATIVE, Urine Glucose (UA) NEGATIVE, Urine Ketones NEGATIVE, Urine Blood NEGATIVE, Urine Nitrite NEGATIVE, Urine Bilirubin NEGATIV E, Urine Urobilinogen 0.2, Urine Leukocyte Esterase TRACEH, Urine WBC (Auto) 6H, Urine RBC (Auto) 1, Urine Hyaline Casts (Auto) 0, Urine Bacteria (Auto) 2+H, Urine Squamous Epithelial Cells 0, Urine Sperm (Auto) 07/23/20 15:50: Coronavirus (COVID-19)(PCR) NEGATIVE, Influenza Type A (RT-PCR) NEGATIVE, Influenza Type B (RT-PCR) NEGATIVE, Respiratory Syncytial Virus (PCR) NEGATIVE 07/23/20 16:15: Blood Gas Bicarbonate Standard 29.5H, Arterial Blood pH 7.514H, Arterial Blood Partial Pressure CO2 36.3, Arterial Blood Partial Pressure O2 79.9, Arterial Bl ood Total CO2 29.7, Arterial Blood HCO3 28.6H, Arterial Blood Base Excess 5.6H, Arterial Blood Oxygen Saturation 95.8 CBC/BMP Laboratory Tests 07/23/20 14:31 Microbiology Microbiology 07/23/20 Urine Culture, Received Pending 07/23/20 Blood Culture, Received Pending Home Medications Scheduled Apixaban (Eliquis) 5 Mg Tablet, 5 MG PO BID Ascorbic Acid (Vitamin C) 250 Mg Tablet, 250 MG PO DAILY Bisoprolol Fumarate (Bisoprolol Fumarate) 5 Mg Tablet, 2.5 MG PO DAILY Cholecalciferol (Vitamin D3) (Vitamin D3) 25 Mcg Capsule, 25 MCG PO DAILY Dexamethasone (Dexamethasone) 2 Mg Tablet, 4 MG PO DAILY Furosemide (Furosemide) 20 Mg Tablet, 20 MG PO DAILY Megestrol Acetate (Megestrol Acetate) 40 Mg Tablet, 80 MG PO BID Nystatin (Nystop) 60 Gm Powder, 1 DOSE TOP BID apply under breasts and stomach folds Potassium Chloride (Potassium Chloride) 20 Meq Tablet.er, 20 MEQ PO DAILY TAKES AT NOON levETIRAcetam (levETIRAcetam) 1,000 Mg Tablet, 1,000 MG PO BID Allergies Coded Allergies: No Known Allergies (Unverified , 03/10/19) A-FIB/CHADSVASC A-FIB History Current/History of A-Fib/PAF?: No Current PO Anticoag Therapy: No Age/Risk Factor Scoring CHADSVASC: CHADSVASC Response (Comments) Value Age Risk Factor Age 65-74 years old 1 Gender Risk Factor Female 1 Hx of CHF No 0 Hx of HTN Yes 1 Hx of Stroke/TIA/or VTE No 0 Hx of Diabetes Yes 1 Hx of Vascular Disease No 0 Total 4 Treatment Treatment ordered: NONE SHEILA SANTACRUZ MD Jul 23, 2020 18:09
[2020-07-23 19:01] LABS: C REACTIVE PROTEIN QUANTITATIV < 0.30 MG/DL (0.00-0.30)
[2020-07-23 19:15] LABS: PROLACTIN 14.1 NG/ML
[2020-07-23] MEDS ORDERED: NYSTATIN 100,000 UNITS/GM TOPICAL PWD 15 GM TOP SCH (21:00)
--- NOTE | 2020-07-23 22:59 | ECGEPIP ---
[facility] - ED Test Date: 2020-07-23 Pat Name: SHANTHI VÁZQUEZ Department: Room: - Gender: Female [employer] Supervisor: ONEIL : 1945 Requested By: Eryn Dow Order Number: [id number] Reading MD: Demian Thomas Measurements Intervals [place] Rate: 106 P: 40 MI: 135 QRS: 30 QRSD: 82 T: 57 QT: 333 QTc: 442 Interpretive Statements SINUS TACHYCARDIA BASELINE ARTIFACT AFFECTS INTERPRETATION Electronically Signed on 07-23-2020 22:58:55 EST by Demian Thomas
[2020-07-24] VITALS: BP 137/65
[2020-07-24 00:30] LABS: HEMATOCRIT 39.1 % (36.0-47.0); HEMOGLOBIN 13.3 g/dl (12.0-15.5)
[2020-07-24] MEDS: PANTOPRAZOLE 40MG VIAL (C9113 PER 1) IV SCH ×2 (00:36→09:36)
[2020-07-24] MEDS: levETIRAcetam 250MG TABLET (KEPPRA) PO SCH ×2 (00:36→09:32)
[2020-07-24] MEDS: MEGESTROL 40 MG TAB PO SCH ×2 (00:36→09:35)
[2020-07-24 00:45] LABS: MB/CK RELATIVE INDEX 7.04 (< OR =4); TROPONIN I 0.05 NG/ML (< 0.10)
[2020-07-24 06:30] LABS: HEMATOCRIT 37.1 % (36.0-47.0); HEMOGLOBIN 12.9 g/dl (12.0-15.5); MEAN CORPUSCULAR HEMOGLOBIN 31.8 pg (27.0-33.0); MEAN CORPUSCULAR HGB CONC 34.8 g/dl (32.0-36.5); MEAN CORPUSCULAR VOLUME 91.4 fl (80.0-96.0); PLATELET COUNT, AUTOMATED 126 10^3/uL (150-450); RED BLOOD COUNT 4.06 10^6/uL (4.00-5.40); WHITE BLOOD COUNT 7.6 10^3/uL (4.0-10.0)
[2020-07-24 06:47] LABS: HEMOGLOBIN A1c 6.3 %
[2020-07-24 06:56] LABS: ALBUMIN 2.8 GM/DL (3.2-5.2); ALT/SGPT 32 U/L (12-78); BILIRUBIN,TOTAL 2.2 MG/DL (0.2-1.0); BLOOD UREA NITROGEN 20 MG/DL (7-18); CALCIUM LEVEL 7.9 MG/DL (8.8-10.2); CARBON DIOXIDE LEVEL 31 MEQ/L (21-32); CHLORIDE LEVEL 102 MEQ/L (98-107); CK-MB VALUE MASS 4.3 NG/ML (<3.6); CPK CREATINE PHOSPHOKINASE 68 U/L (26-192); GLOMERULAR FILTRATION RATE > 60.0 (>39); GLUCOSE, FASTING 108 MG/DL (70-100); MB/CK RELATIVE INDEX 6.32 (< OR =4); SODIUM LEVEL 142 MEQ/L (136-145); TOTAL PROTEIN 5.1 GM/DL (6.4-8.2); TROPONIN I 0.06 NG/ML (< 0.10)
[2020-07-24 07:09] LABS: ATYPICAL LYMPH 1 % (0-5); LYMPHOCYTES 16 % (16-44); METAMYELOCYTES 1 % (0-0); MONOCYTES 4 % (0-5); MYELOCYTES 2 % (0-0); NEUTROPHILS 75 % (28-66); PLATELET ESTIMATE DECREASED (NORMAL)
[2020-07-24 07:10] LABS: ANISOCYTOSIS 1+; POLYCHROMASIA 1+
[2020-07-24] MEDS ORDERED: SUCR1TA PO (07:13)
[2020-07-24] MEDS ORDERED: PROT1TAB2 PO (07:13)
[2020-07-24] MEDS ORDERED: POTASSIUM CHLORIDE 10 MEQ SR TABLET PO SCH ×2 (08:00→09:00)
--- NOTE | 2020-07-24 08:25 | IPNPDOC ---
Date Seen The patient was seen on 07/24/20. Progress Note S: no recurrent gibleed. denies hematemesis, melena, black stools, abd pain. no fever chills. procalcitonin negative. hgb 12. ua unremarkable. no c/o chest pain, pressure, tightness O: PHYSICAL EXAMINATION: VSSee below . GENERAL APPEARANCE:no pallor no respiratory distress HEENT: dry mucous membranes no cervical lymphadenopathy no thyromegaly no JVD no pharyngeal erythema CARDIOVASCULAR: S1-S2 regular rate and rhythm LUNGS: Clear to auscultation no wheezing or rales ABDOMEN: Obese soft nontender nondistended positive bowel sounds 4 quadrants no rebound or guarding stage II sacral decubitus bilaterally EXTREMITIES: Chronic 2+ edema EKG sinus rhythm ST depressions LABORATORY DATA: See below. IMAGING: CT head see below chest x-ray see below MICROBIOLOGY: Please see below. 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 Patient wears a diaper at home and has 24 7 With caregivers and family and has been in bed for the past 5 months with a new stage II sacral decubiti as noted for the past 5-6 days .patient otherwise denies any nausea vomiting abdominal pain. She denies any shortness of breath fever or chills dizziness lightheadedness fall no prior episode of bloody stools in the past, does not take any NSAIDs anticoagulants or antiplatelet medications with history of peptic ulcer disease and esophagitis gastritis colon polyps arteriovenous malformations hemorrhoids, and no repeat bloody stools after the one episode was seen at home. According to the daughter patient needs assistance with her meals she is shaking and has not been walking for at least 5 months. In the emergency room history was given by the patient's daughter at the bedside as the patient has chronic dementia. Year with chest x-ray were negative patient had a temperature 100.0 hospitalist was asked to admit the patient for low-grade fever and bloody stools. Problem list: Bright red blood per rectum/Acute GI bleed/Acute blood loss -hgb unchanged. no need for rbc transfusion. -d'arlyn archuletaquis -started on protonix and carafate -per general surgeon applications project manager Dr. vázquez, no acute need for colonoscopy or egd with normal hgb , no recurrent bleed, and normal vitals. outpt fu w either GI or general surgery after cardiac and neurology clearance due to brain mets w brain edema Abnormal cardiac markers/abnormal EKG -no chest pain, pressure, tightness -cannot be anticoagulated or given antiplatelets due to acute GI bleed w bloody stool on diaper yesterday -Echo ordered Bilateral sacral decubitus ulcers stage II -turn and reposition q2hrs -wound care physical therapy consulted -per general surgeon applications project manager, Dr. Vázquez, foam and off loading. keep dry and reposition, outpt Dr. Velasquez referral. -RN to get Wound care Dr. Velasquez appt for telemedicine -outpt home care referral Metastatic endometrial cancer to the brain bones lungs subcutaneous status post radiation and hysterectomy, complicated by PE/DVT due to hypercoagulable state -has brain mets w edema and seizure -on AED -DNR/DNI, MOLST Filled out -needs neuro and cardio clearance for EGD/colonoscopy if continues to bleed. PE/DVT due to malignant endometrial cancer w brain mets/hypercoagulable state -due to GI bleed, pt's eliquis held -checked CT chest r/o PE, DVT rule out with venous dopplers b/l LE. -will need IVC Filter if continued GIBleed and PE/DVT on imaging. Functional paraplegia -full care at home -has home care and 2 caregivers -Daughter does not want SNF placement Chronic dementia -complicating care Obesity complicating care Hypertension resumed on home meds Diabetes on consistent carbs insulin slide scale dyslipidemia chronic Chronic lower extremity edema -has h/o dvt. -off eliquis due to LGIBleed Lactic acidosis -no signs of infection -procalcitonin<0.05, unlikely to have infection, no empiric antibiotics Disposition: if negative CT chest for PE, negative Dopplers LE for DVT, and after physical therapy wound care consult gives recommendations for b/l sacral decubiti stage 2, patient may be discharged home. VS, I&O, 24H, Fishbone Vital Signs/I&O Vital Signs Date Time Temp Pulse Resp B/P (MAP) Pulse Ox O2 Delivery O2 Flow Rate FiO2 12/23/20 07:11 79 07/24/20 00:25 99 07/24/20 00:00 137/65 (89) 07/23/20 22:01 98.2 07/23/20 19:10 20 07/23/20 18:55 Room Air I&O- Last 24 Hours up to 6 AM 07/24/20 06:00 Intake Total 1000 ml Balance 1000 ml Laboratory Data 24H LABS Laboratory Tests 2 07/23/20 14:31: Immature Granulocyte % (Auto) , Neutrophils (%) (Auto) , Nucleated Red Blood Cells % (auto) 0.6H, Neutrophils 86H, Band Neutrophils 2, Lymphocytes (Manual) 8L, Monocytes (Manual) 1, Metamyelocytes 1H, Atypical Lymphocytes 2, Polychromasia 1+, Platelet Estimate DECREASED, Anion Gap 12, Glomerular Filtration Rate > 60.0, Lactic Acid Level 5.3*H, Calcium Level 8.2L, Total Bilirubin 2.3H, Direct Bilirubin 0.6H, Aspartate Amino Transf (AST/SGOT) 22, Alanine Aminotransferase (ALT/SGPT) 40, Alkaline Phosphatase 79, Total Creatine Kinase < 7L, Creatine Kinase MB 3.2, Creatine Kinase MB Relative Index 45.71H, Troponin I 0.04, Total Protein 6.3L, Albumin 3.5, Albumin/Globulin Ratio 1.3, Thyroid Stimulating Hormone (TSH) 1.100 07/23/20 14:35: Urine Color YELLOW, Urine Appearance HAZY, Urine pH 7.0, Urine Specific [place] 1.009, Urine Protein NEGATIVE, Urine Glucose (UA) NEGATIVE, Urine Ketones NEGATIVE, Urine Blood NEGATIVE, Urine Nitrite NEGATIVE, Urine Bilirubin NEGATIVE, Urine Urobilinogen 0.2, Urine Leukocyte Esterase TRACEH, Urine WBC (Auto) 6H, Urine RBC (Auto) 1, Urine Hyaline Casts (Auto) 0, Urine Bacteria (Auto) 2+H, Urine Squamous Epithelial Cells 0, Urine Sperm (Auto) 07/23/20 15:50: Coronavirus (COVID-19)(PCR) NEGATIVE, Influenza Type A (RT-PCR) NEGATIVE, Influenza Type B (RT-PCR) NEGATIVE, Respiratory Syncytial Virus (PCR) NEGATIVE 07/23/20 16:15: Blood Gas Bicarbonate Standard 29.5H, Arterial Blood pH 7.514H, Arterial Blood Partial Pressure CO2 36.3, Arterial Blood Partial Pressure O2 79.9, Arterial Blood Total CO2 29.7, Arterial Blood HCO3 28.6H, Arterial Blood Base Excess 5.6H, Arterial Blood Oxygen Saturation 95.8 07/23/20 18:17: Ammonia 20, C-Reactive Protein, Quantitative < 0.30, Procalcitonin <0.05, Prolactin 14.1 07/23/20 20:09: Erythrocyte Sedimentation Rate 12, Lactic Acid Followup at 4 Hours 3.9*H 07/23/20 23:52: Total Creatine Kinase 71#, Creatine Kinase MB 5.0H, Creatine Kinase MB Relative Index 7.04H, Troponin I 0.05# 07/24/20 06:15: Total Creatine Kinase 68, Creatine Kinase MB 4.3H, Creatine Kinase MB Relative Index 6.32H, Troponin I 0.06, Immature Granulocyte % (Auto) , Neutrophils (%) (Auto) , Nucleated Red Blood Cells % (auto) 0.9H, Neutrophils 75H, Band Neutrophils 1, Lymphocytes (Manual) 16, Monocytes (Manual) 4, Metamyelocytes 1H, Myelocytes 2H, Atypical Lymphocytes 1, Polychromasia 1+, Basophilic Stippling 1+, Anisocytosis 1+, Platelet Estimate DECREASED, Anion Gap 9, Glomerular Filtra tion Rate > 60.0, Estimated Mean Plasma Glucose 134H, Hemoglobin A1c 6.3, Calcium Level 7.9L, Total Bilirubin 2.2H, Aspartate Amino Transf (AST/SGOT) 19, Alanine Aminotransferase (ALT/SGPT) 32, Alkaline Phosphatase 44L, Total Protein 5.1L, Albumin 2.8L, Albumin/Globulin Ratio 1.2 CBC/BMP Laboratory Tests 07/23/20 14:31 07/23/20 23:52 07/24/20 06:15 Microbiology Microbiology 07/23/20 Urine Culture, Received Pending 07/23/20 Blood Culture, Received Pending SHEILA SANTACRUZ MD Jul 24, 2020 08:25
[2020-07-24] MEDS ORDERED: ASCORBIC ACID 250 MG TAB PO SCH (09:00)
[2020-07-24] MEDS ORDERED: bisoproloL fumarate 5 MG TAB PO SCH (09:00)
[2020-07-24] MEDS: GASTROGRAFIN SOLUTION 30ML PO SCH ×2 (09:31→09:56)
[2020-07-24 09:32] VITALS: BP 137/65
[2020-07-24] MEDS: SUCRALFATE 1 GM TAB PO SCH (09:33)
--- NOTE | 2020-07-24 09:34 | REP ---
INDICATION: b/l le edema r/o dvt COMPARISON: None. TECHNIQUE: [place]oyo scale and color Doppler evaluation bilateral lower extremities using linear high frequency transducer. FINDINGS: Ultrasound examination of the right and left lower extremity deep venous structures from the common femoral vein to the popliteal vein demonstrates normal compressibility flow and wave patterns in response to respiration and augmentation. There is no evidence for deep venous thrombosis. IMPRESSION: No evidence for deep venous thrombosis. <Electronically signed by Parvez Barnett > 07/24/20 [id number]
[2020-07-24] MEDS ORDERED: ISOVUE-370 76% 100ML VIAL As Ordered ONE (10:13)
--- NOTE | 2020-07-24 12:17 | REP ---
INDICATION: endometrial ca w lung mets h/o pe/dvt. sob COMPARISON: 07/05/2020 TECHNIQUE: Axial contrast enhanced images from the thoracic inlet to the upper abdomen using pulmonary embolus technique with multiplanar re-formations. 75 ml Isovue 370 intravenous contrast material administered without complication. This CT examination was performed using the following dose reduction techniques: Automated exposure control, adjustment of mA and/or kv according to the patient's size, and use of iterative reconstruction technique. FINDINGS: Satisfactory enhancement of the pulmonary vasculature is achieved and no filling defects are identified to suggest pulmonary embolus. The left upper lobe pulmonary artery appears significantly attenuated and possibly obstructed due to extrinsic compression by adjacent soft tissue at the left suprahilar region but is unchanged in appearance when compared to prior examination. Associated ill-defined nodular densities in the left upper lobe with partially cavitary mass lesion along the subpleural left upper lobe measures roughly 4 cm and has increased from prior examination. Remainder lung thompson demonstrate emphysematous changes and scattered scarring along with few scattered small calcified granulomata and no obvious further acute process. No pleural effusion. No pneumothorax. No significant acute adenopathy. Atherosclerotic changes to the thoracic aorta and coronary arteries noted without aortic aneurysm or cardiomegaly. No pericardial effusion. Right-sided Bfokze-C-Avco identified with tip in the SVC. Musculoskeletal structures demonstrate osteopenia and degenerative changes ill-defined sclerotic focus in the right humeral head is unchanged. Limited upper abdomen demonstrates normal bilateral adrenal glands. IMPRESSION: 1. No evidence for pulmonary embolus. 2. Pleuroparenchymal and pulmonary vascular changes to the left upper lobe remains stable. 3. Mass lesion with cavitary component in the peripheral subpleural left upper lobe is visibly increased in size from prior examination. Remainder of the lung thompson demonstrate chronic stable changes. <Electronically signed by Parvez Barnett > 07/24/20 [id number]
--- NOTE | 2020-07-24 12:23 | REP ---
INDICATION: lgibleed r/o colon mass. COMPARISON: 07/05/2020 TECHNIQUE: Axial contrast-enhanced images from the lung bases to the pubic symphysis using oral and 100 cc Isovue 370 intravenous contrast material. Coronal and sagittal reformations obtained. This CT examination was performed using the following dose reduction techniques: Automated exposure control, adjustment of mA and/or kv according to the patient's size, and the use of iterative reconstruction technique. FINDINGS: Diffuse fatty infiltration to the liver noted and a hypervascular nodule measuring 1.2 cm in the region of the falciform ligament appears decreased in size. No further obvious hepatic lesions noted. Splenic calcifications consistent with prior granulomatous disease and or post therapeutic changes. Pancreas, bilateral adrenal glands, and kidneys are relatively normal. Small nonobstructing bilateral intrarenal calculi and small bilateral cysts are suggested. Cholelithiasis noted without acute cholecystitis. The enteric system demonstrates normal appearance of the small bowel along with moderate fecal stasis and few scattered colonic diverticula. No evidence for acute inflammatory process or diverticulitis noted. No evidence for bowel obstruction. No free air or free fluid to suggest perforation. Pelvis demonstrates Hernandez catheter in collapsed bladder and evidence for prior hysterectomy. No ascites. No intraperitoneal or retroperitoneal adenopathy. Abdominal aorta and vasculature without aneurysm or dissection. Musculoskeletal structures demonstrate degenerative changes without focal osseous abnormality. IMPRESSION: 1. Hepatosteatosis and focal hypervascular lesion previously identified has decreased in size. No new hepatic lesions identified. 2. Cholelithiasis. 3. Scattered diverticula without acute diverticulitis or obvious acute enteric process otherwise appreciated. 4. No ascites, focal inflammatory stranding, adenopathy, or free air/free fluid. <Electronically signed by Parvez Barnett > 07/24/20 [id number]
[2020-07-24 12:38] LABS: HEMATOCRIT 39.2 % (36.0-47.0); HEMOGLOBIN 13.5 g/dl (12.0-15.5)
--- NOTE | 2020-07-25 12:26 | ECHO ---
DATE OF PROCEDURE: 07/24/2020 Age: 75 Gender: Female Height: Weight: REFERRING PHYSICIAN: Keisha Ace MD PATIENT LOCATION: [facility] area. REASON FOR STUDY: Altered mental status. 2D EASUREMENTS: IVS 0.9 cm LV 4.0 cm LVPW 0.9 cm LA 2.9 cm IVC 1.6 cm DOPPLER MEASUREMENT Peak velocity across the aortic valve 1.5 msec Peak velocity across the LVOT 1.3 msec Mitral E 0.63 Mitral A 0.89 with a ratio of 0.7 2D COMMENTS: * Technically limited study due to poor acoustic window. * The left ventricular size is normal, as well as left ventricular wall thickness. Left ventricular systolic function is estimated at 50% to 55%. The apex appeared to be hypokinetic. * Normal left atrium. The right atrium and the right ventricle appeared to be normal in limited views. * The atrial septum appeared to be normal without evidence of defect or shunt. * Normal aortic root. * No pericardial effusion seen. * Moderately calcified aortic valve. Leaflet excursion appeared to be normal. Mildly calcified mitral annulus with normal anterior mitral valve leaflet motion. The tricuspid valve appeared to be normal in limited views. The pulmonic valve and proximal pulmonary artery branches were not well visualized. * The inferior vena cava was normal in size, central venous pressure is most likely normal. DOPPLER: Only moderate mitral regurgitation detected. Abnormal relaxation pattern was noted across the mitral valve leaflets, as well as the mitral valve annulus consistent with features of grade 1 left ventricular diastolic dysfunction. IMPRESSION: * Technically limited study due to poor acoustic window. * Low normal global left ventricular systolic function. The apex appeared to be hypokinetic. There are some features of grade 1 left ventricular diastolic dysfunction manifested by abnormal relaxation. * Aortic valve sclerosis with moderate aortic regurgitation, but no aortic stenosis. MTDD
== END 2020-07-24 16:27 | disposition home or self-care (01) ==
LOC: EDBD 14:10 → M ED 14:10 → M ED INP 14:11
PROVIDERS: ADMIT General Practice; ATTEND General Practice
DX: K92.2 Gastrointestinal hemorrhage, unspecified (principal); D62 Acute posthemorrhagic anemia; R94.31 Abnormal electrocardiogram [ECG] [EKG]; R53.81 Other malaise; R60.0 Localized edema; L89.152 Pressure ulcer of sacral region, stage 2; E87.2 Acidosis; F03.90 Unspecified dementia, unspecified severity, without behavioral disturbance, psychotic disturbance, mood disturbance, and anxiety; C54.1 Malignant neoplasm of endometrium; C79.51 Secondary malignant neoplasm of bone; C79.31 Secondary malignant neoplasm of brain; I10 Essential (primary) hypertension; E11.9 Type 2 diabetes mellitus without complications; E78.5 Hyperlipidemia, unspecified; E66.9 Obesity, unspecified; Z92.3 Personal history of irradiation; Z79.899 Other long term (current) drug therapy
CPT/HCPCS: 36415; 36600; 51702; 70450; 71045; 71275; 74177; 80048; 80053; 80076; 81001; 82140; 82550; 82553; 82803; 83036; 83605; 84145; 84146; 84443; 84484; 85014; 85018; 85025; 85652; 86140; 87040; 87077; 87088; 87186; 87631; 93005; 93041; 93306; 93970; 96361; 96374; 96376; 97161; 97530; 99285; C9113; G0378; Q9963; Q9967